=== PATIENT | female | born 1965 | race Caucasian/White ===

== ENCOUNTER → 2018-02-21 07:00 | Outpatient (CLI) | payer BC, SELFPAY ==
--- NOTE | 2018-02-21 07:00 | BI_ITS ---
MAMMOGRAPHY - BILATERAL SCREENING REASON FOR EXAM: Female, 52 years old. Routine annual screening examination. PERTINENT HISTORY: Non-contributory. TECHNIQUE: Digital bilateral breast kiesha (3D mammographic acquisition) in the CC and MLO projections. 2-D mediolateral oblique (MLO) and craniocaudad (CC) views of both breasts were obtained. CAD: Full Field Digital Mammography with Computer Added Detection was performed. COMPARISON: Comparison is made with prior study dated February 20, 2017 and January 24, 2016. FINDINGS: Breast Composition: There are scattered areas of fibroglandular density. There are no dominant masses or suspicious calcifications. No other significant abnormalities are identified. There has been no significant change since the prior study. BI/SCREENING MAMM (CAD), BILAT IMPRESSION: Stable bilateral screening mammogram. Yearly follow-up mammogram recommended. (A) ASSESSMENT CATEGORY: BIRADS Category 1: Negative. A letter regarding these results will be sent to the patient by the facility within 30 days. Approximately 10% of breast cancers are not detected by mammography. A normal mammogram should not delay biopsy of a clinically suspicious abnormality. [id number] Electronically Signed: Jorge Mac MD at 8:45 EST Tel [phone], Service support ,
--- OUTSIDE RECORDS SUMMARY | 2018-04-18 07:11 | XMS RPT_ITS | Clinical Summary ---
:1965 Author Organization [facility], [facility] Address [address] [place] [address] Phone Care Team Providers Name Role Phone Niki Alvares MD Unavailable Conditions or Problems Problem Name Problem Onset Status Entry Provider Comment Standard Annotate Code Date Date Description Hx of ASCUS 131798101 Active Niki Head History of Pap (SNOMED 03/30 03/[address]) cervical Papanicolaou smear Screening for 219874962 Active Niki Head Procedure HPV (SNOMED Marcleti carried out CT) on subject Screening for 759774972 Active Niki Head Screening for cervical (SNOMED Marcanthony malignant cancer CT) neoplasm of cervix Screening 00066841 Active Niki Head Screening mammogram for (SNOMED Marcanthony mammography breast cancer CT) Screening for 365650276 Active Niki Head Screening for colon cancer (SNOMED Marcanthony malignant CT) neoplasm of colon Climacteric 416501972 Active Niki Head Normal state, female (SNOMED Marcanthony menopause CT) MD Encounter for 56330768 Active Niki Head Gynecologic gynecological (SNOMED Marcanthony examination examination CT) (general) (routine) with abnormal findings Contact 03014298 Active Yg A Khan Contact dermatitis (SNOMED 09/27 09/27 ORACLE ETL DEVELOPER-C dermatitis CT) Insect bite 065365111 Active Yg A Khan Insect bite - (SNOMED 09/27 09/27 ORACLE ETL DEVELOPER-C wound CT) Spider bite 834368885 Active Maru Little Spider bite (SNOMED 09/27 09/27 Marcio TESTING ANALYST wound CT) Medications Medication Instructions Start Stop Generic Name NDC Provider Date Date VENLAFAXINE HCL One tablet by VENLAFAXINE HCL 87225724472 Niki Head 37.5 MG TABS mouth daily Giorgio HAMMER KEFLEX 500 MG One tablet by CEPHALEXIN 63229773751 Yg A Khan CAPS mouth twice /10/04 ORACLE ETL DEVELOPER-C daily HYDROCORTISONE apply HYDROCORTISONE 07861509150 Yg A Khan 2.5 % CREA sparingly to ORACLE ETL DEVELOPER-C affected extremity twice daily for 7 days HYDROCORTISONE apply HYDROCORTISONE 20908982519 Niki E 2.5 % CREA sparingly to Giorgio affected MD extremity twice daily for 7 days Medications Administered No information available. Allergies, Adverse Reactions, Alerts Observed no known allergies at Results Date Name Value Unit Range Flag Description Office Visit: est annual MEDS REVIEW Done Documentation of current medications (procedure) MAMMOGRAM Normal Bilateral Breast Mammogram screening PAP SMEAR Normal General categories [Interpretation] of Cervical or vaginal smear or scraping by Cyto stain ORALTOBACUSE Never Tobacco smoking status NHIS SMOK STATUS Never smoker Tobacco use [facility] FALLRSKATARANES No Fall risk assessment Lab Report: PAP I-G HPV Hi Risk ZZ-GE-unk Negative Negative GE use only - for LinkLogic import when terms are not otherwise specified Plan of Care Type Date Detail Referral Surgery Referral Andrew Tsaibody, [address] [facility], [address], [place], [address] Pending order Mammogram, Screening, both breasts Patient education INSECT%20BITE%20OR%20STING Procedures Code Procedure Name Date Entry Date [id number] Surgery Referral CPT-42482 Mammogram, Screening, both breasts Vital Signs Date Name Value Unit Description BMI (Body Mass Index) 25.72 kg/m2 Body Mass Index [Ratio] Body Temperature 97.5 [degF] temperature E&M Body Temperature 36.39 Etta temperature in centigrade E&M BP Diastolic 69 mm[Hg] blood pressure, diastolic - 8462-4 BP Systolic 124 mm[Hg] blood pressure, systolic - 8480-6 Heart Rate 58 /min pulse rate E&M - 8867-4 Height 66.5 [in_us] height E&M - 8302-2 Height 168.91 cm height in centimeters E&M Respiratory Rate 16 /min respiratory rate E&M - 9279-1 Weight Measured 161.8 [lb_av] weight E&M - 3141-9 Weight Measured 73.39 kg weight in kilograms E&M
--- OUTSIDE RECORDS SUMMARY | 2018-04-18 07:11 | XMS RPT_ITS | Clinical Summary ---
:1965 Author Organization [employer] [facility] Address [address] [place] [address] Phone Care Team Providers Name Role Phone NEVAEH Archuleta RN, Jaqueline Jung Unavailable Unavailable Conditions or Problems Problem Name Problem Onset Status Entry Provider Comment Standard Annotate Code Date Date Description Hx of ASCUS 178435695 Active Niki Head History of Pap (SNOMED 03/30 03/[address]) cervical Papanicolaou smear Screening for 624135414 Active Niki Head Procedure HPV (SNOMED Marcanthony carried out CT) on subject Screening for 207298753 Active Niki Adilene Screening for cervical (SNOMED Marcanthony malignant cancer CT) neoplasm of cervix Screening 11864997 Active Niki Adilene Screening mammogram for (SNOMED Marcanthony mammography breast cancer CT) Screening for 637655213 Active Niki Adilene Screening for colon cancer (SNOMED Marcanthony malignant CT) neoplasm of colon Climacteric 366905001 Active Niki Head Normal state, female (SNOMED Marcanthony menopause CT) MD Encounter for 97948429 Active Niki Head Gynecologic gynecological (SNOMED Marcanthony examination examination CT) (general) (routine) with abnormal findings Contact 56948635 Active Yg A Khan Contact dermatitis (SNOMED 09/27 09/27 GAMING DIRECTOR-C dermatitis CT) Insect bite 267057167 Active Yg A Khan Insect bite - (SNOMED 09/27 09/27 GAMING DIRECTOR-C wound CT) Spider bite 230471072 Active Maru Little Spider bite (SNOMED 09/27 09/[address]) Medications Medication Instructions Start Stop Generic Name NDC Provider Date Date VENLAFAXINE HCL One tablet by VENLAFAXINE HCL [id number] Niki Head 37.5 MG TABS mouth daily Giorgio HAMMER KEFLEX 500 MG One tablet by CEPHALEXIN 86115730254 Yg A Khan CAPS mouth twice /10/04 GAMING DIRECTOR-C daily HYDROCORTISONE apply HYDROCORTISONE 89154340756 Yg A Khan 2.5 % CREA sparingly to GAMING DIRECTOR-C affected extremity twice daily for 7 days HYDROCORTISONE apply HYDROCORTISONE 28628680585 Niki E 2.5 % CREA sparingly to [...] NHIS SMOK STATUS Never smoker Tobacco use [facility] FALLRSKASS[facility] No Fall risk assessment Lab Report: PAP I-G HPV Hi Risk ZZ-GE-unk Negative Negative GE use only - for LinkLogic import when terms are not otherwise specified Plan of Care Type Date Detail Referral Surgery Referral Andrew Armand, [address] [facility], [address], [place], [address] Pending order Mammogram, Screening, both breasts Patient education INSECT%20BITE%20OR%20STING Procedures Code Procedure Name Date Entry Date [id number] Surgery Referral CPT-18228 Mammogram, Screening, both breasts Vital Signs Date [...]
--- OUTSIDE RECORDS SUMMARY | 2018-04-18 07:11 | XMS RPT_ITS | Clinical Summary ---
:1965 Author Organization [facility] Address [address] [place] [address] Phone Care Team Providers Name Role Phone Marcio PORTER, Maru Little Unavailable Unavailable Conditions or Problems Problem Name Problem Onset Status Entry Provider Comment Standard Annotate Code Date Date Description Contact 79380372 Active Yg A Contact dermatitis (SNOMED CT) / Khan dermatitis WORK COUNSELOR-C Insect bite 494057804 Active Yg A Insect bite - (SNOMED CT) / Khan wound WORK COUNSELOR-C Spider bite 970017965 Active Maru Little Spider bite (SNOMED CT) / Marcio wound QUALITY CONTROL EXPERT Medications Medication Instructions Start Stop Generic Name NDC Provider Date Date HYDROCORTISONE apply sparingly / HYDROCORTISONE 14581627584 Yg A 2.5 % CREA to affected 05 Khan WORK COUNSELOR-C extremity twice daily for 7 days KEFLEX 500 MG One tablet by CEPHALEXIN 79889143991 Yg A CAPS mouth twice Khan WORK COUNSELOR-C daily Medications Administered No information available. Allergies, Adverse Reactions, Alerts Observed no known allergies at Results Date Name Value Unit Range Flag Description Office Visit: UC: spider bite/poison oak? MEDS REVIEW Done Documentation of current medications (procedure) FALLRSKASSES No Fall risk assessment SMOK STATUS Never smoker Tobacco use [facility] Plan of Care Type Date Detail Patient education INSECT%20BITE%20OR%20STING Procedures No information available. Vital Signs Date Name Value Unit Description BMI (Body Mass Index) 25.72 kg/m2 Body Mass Index [Ratio] Body Temperature 98.1 [degF] temperature E&M BP Diastolic 62 mm[Hg] blood pressure, diastolic - 8462-4 BP Systolic 110 mm[Hg] blood pressure, systolic - 8480-6 Heart Rate 55 /min pulse rate E&M - 8867-4 Height 66.5 [in_us] height E&M - 8302-2 Respiratory Rate 14 /min respiratory rate E&M - 9279-1 Weight Measured 161.8 [lb_av] weight E&M - 3141-9
--- OUTSIDE RECORDS SUMMARY | 2018-04-18 07:11 | XMS RPT_ITS | Clinical Summary ---
:1965 Author Organization [facility] Address [address] [place] [address] Phone Care Team Providers Name Role Phone Marcio PORTER, Maru Little Unavailable Unavailable Conditions or Problems Problem Name Problem Onset Status Entry Provider Comment Standard Annotate Code Date Date Description Contact [id number] Active Yg A Contact dermatitis (SNOMED CT) / Khan dermatitis EDGE PLUGGER-C Insect bite 302985205 Active Yg A Insect bite - (SNOMED CT) / Khan wound EDGE PLUGGER-C Spider bite 356808671 Active Maru Little Spider bite (SNOMED CT) / Marcio wound CLINICAL AIDE Medications Medication Instructions Start Stop Generic Name NDC Provider Date Date HYDROCORTISONE apply sparingly HYDROCORTISONE 74919939635 Yg A 2.5 % CREA to affected 05 Khan EDGE PLUGGER-C extremity twice daily for 7 days KEFLEX 500 MG One tablet by / CEPHALEXIN 69056778043 Yg A CAPS mouth twice Khan EDGE PLUGGER-C daily Medications Administered No information available. Allergies, Adverse Reactions, Alerts Observed no known allergies at Results Date Name Value Unit Range Flag Description Office Visit: UC: spider bite/poison oak? MEDS REVIEW Done Documentation of current medications (procedure) FALLRSKASSES No Fall risk assessment SMOK STATUS Never smoker Tobacco use [facility] Plan of Care Type Date Detail Appointment 12:00 PM Yg A Khan EDGE PLUGGER-C, [address], [address], [place], [address], Patient education INSECT%20BITE%20OR%20STING Procedures No information available. [...]
--- OUTSIDE RECORDS SUMMARY | 2018-04-18 07:11 | XMS RPT_ITS | Clinical Summary ---
:1965 Author Organization [facility], [facility] Address [address] [place] [address] Phone Care Team Providers Name Role Phone Niki Alvares MD Unavailable Conditions or Problems Problem Name Problem Onset Status Entry Provider Comment Standard Annotate Code Date Date Description Screening for 968192776 Active Niki Head Procedure HPV (SNOMED Marcanthony carried out CT) on subject Screening for 267005789 Active Niki E Screening cervical cancer (SNOMED Marcanthony for CT) malignant neoplasm of cervix Screening 45220104 Active Niki E Screening mammogram for (SNOMED Marcanthony mammography breast cancer CT) Screening for 025937019 Active Niki E Screening colon cancer (SNOMED Marcanthony for CT) malignant neoplasm of colon Climacteric 825792289 Active Niki Head Normal state, female (SNOMED Marcanthony menopause CT) MD Encounter for 87143901 Active Niki Adilene Gynecologic gynecological (SNOMED Marcanthony examination examination CT) (general) (routine) with abnormal findings Contact 03535469 Active Yg A Khan Contact dermatitis (SNOMED 09/27 09/27 GUTTER INSTALLER-C dermatitis CT) Insect bite 284053171 Active Yg A Khan Insect bite (SNOMED 09/27 09/27 GUTTER INSTALLER-C - wound CT) Spider bite 544034669 Active Maru N Spider bite (SNOMED 09/27 09/27 Marcio TELEPHONE SEX WORKER wound CT) Medications Medication Instructions Start Stop Generic Name NDC Provider Date Date VENLAFAXINE HCL One tablet by VENLAFAXINE HCL 49827824982 Niki Head 37.5 MG TABS mouth daily Giorgio HAMMER KEFLEX 500 MG One tablet by CEPHALEXIN 29442131668 Yg A Khan CAPS mouth twice /10/04 GUTTER INSTALLER-C daily HYDROCORTISONE apply HYDROCORTISONE 29336447129 Yg A Khan 2.5 % CREA sparingly to GUTTER INSTALLER-C affected extremity twice daily for 7 days HYDROCORTISONE apply HYDROCORTISONE 30862041862 Niki E 2.5 % CREA sparingly to Giorgio car MD extremity twice daily for 7 days [...] NHIS SMOK STATUS Never smoker Tobacco use [facility] FALLRSKAR[facility] No Fall risk assessment Plan of Care Type Date Detail Referral Surgery Referral Andrew Armand, [address] [facility], [address], [place], [address] Pending order Mammogram, Screening, both breasts Patient education INSECT%20BITE%20OR%20STING Procedures No information available. [...]
--- OUTSIDE RECORDS SUMMARY | 2018-04-18 07:12 | XMS RPT_ITS ---
:1965 Author Organization OHIP Care Team Providers Name Role Phone DR. SILVER NAQVI DO Attending Unavailable IRON HE, DR. BRIAN Moore Primary Care Unavailable MARGARET MURRAY DO Attending Unavailable IRON HE, DR. BRIAN Moore Primary Care Unavailable Niki Alvares Attending Unavailable BRIAN PERDUE Referring Unavailable Niki Alvares Attending Unavailable BRIAN PERDUE Primary Care Unavailable PROBLEMS PROBLEMS DATE TYPE CONDITION / CODE ATTENDING STATUS SOURCE 02/21/2018 Unknown Z12.31 - Encounter Santiago Alvares for screening [facility] mammogram for Hospital malignant neoplasm Repository of breast / Z12.31(ICD-10) 01/28/2018 Unknown Z01.411 - Encounter Santiago Alvares for gynecological [facility] (general) (routine) Repository with abnormal findings / Z01.411(ICD-10) 01/28/2018 Unknown N95.1 - Menopausal Santiago [facility] / N95.1(ICD-10) Repository 12/24/2017 Admitting Encounter for DRISS MORENO DR. Active [facility] Diagnosis general adult [facility] medical examination Repository without abnormal findings / Z00.00(ICD-10) PROCEDURES PROCEDURES No Procedure Records FoundRESULTS RESULTS SCREENING MAMM (CAD), Observed: 02/21/2018 Status: F Source: CARLENE BILAT 7:03 AM [facility] REPOSITORY [facility] Imaging Services [address] [place] [address] SCREENING MAMM (CAD), BILAT MR#: [id number] Acct: [id number] Name: JOE HAYES Rep #: [id number] : 1965 F 52 From: Jorge Mac MD PCP: Brian Perdue MD Status: REG CLI Study: SCREENING MAMM (CAD), BILAT Date of Exam: 02/21/18 Exam# [id number] Ordering Dr: Niki Alvares MD MAMMOGRAPHY - BILATERAL SCREENING REASON FOR EXAM: Female, 52 years old. Routine annual screening examination. PERTINENT HISTORY: Non-contributory. TECHNIQUE: Digital bilateral breast kiesha (3D mammographic acquisition) in the CC and MLO projections. 2-D mediolateral oblique (MLO) and craniocaudad (CC) views of both breasts were obtained. CAD: Full Field Digital Mammography with Computer Added Detection was performed. COMPARISON: Comparison is made with prior study dated February 20, 2017 and January 24, 2016. FINDINGS: Breast Composition: There are scattered areas of fibroglandular density. There are no dominant masses or suspicious calcifications. No other significant abnormalities are identified. There has been no significant change since the prior study. BI/SCREENING MAMM (CAD), BILAT IMPRESSION: Stable bilateral screening mammogram. Yearly follow-up mammogram recommended. (A) ASSESSMENT CATEGORY: BIRADS Category 1: Negative. A letter regarding these results will be sent to the patient by the facility within 30 days. Approximately 10% of breast cancers are not detected by mammography. A normal mammogram should not delay biopsy of a clinically suspicious abnormality. 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 Chief Complaint: est annual Medicaid Specialist Required: No Is patient in pain?: No Allergies No Known Allergies Allergy (Unverified 01/28/18 09:35) Medications venlafaxine ER 37.5 mg capsule,extended release 24 hr 37.5 mg PO DAILY 01/28/18 [History Confirmed 01/28/18] Is last menstrual period known: No Post menopausal: No Patient : No : No PFSH Medical History History of anxiety (Acute) History of depression (Acute) History of ectopic (Acute) Surgical History History of left oophorectomy (Acute) uterine ablation (Acute) Family History Grandmother Cancer lung Grandfather Colon cancer Social History Smoking Status: Never smoker alcohol intake: never substance use type: does not use caffeine: Yes what type of physical activity do you participate in: walking seatbelt use: always do you feel safe at home: Yes additional social history: Smita- [employer] Pregancy History 5 Elective abortions Hx Para 1 Spontaneous abortions Past Pregnancies Del. DatName [place]/WeeksOutcome Route [facility] LgAnesthesDel LocaProviderFOB e ht en ia tn Unknown [address] Female 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 dtr just got engaged. Last PAP: 2016 ascus hpv neg History of abnormal PAP: ascus Last mammogram: 02/21 History of abnormal mammogram: yes Colon cancer screening: needs to schedule Other preventative health care screenings: pcp- dr perdue ROS Const Constitutional: Reports as per HPI; denies poor appetite, fatigue, increased appetite, weight gain or weight loss Cardio Card: Denies chest pain Resp Resp: Denies dyspnea or cough GI GI: Reports as per HPI; denies bloating, abdominal pain, constipation, vomiting or nausea : Reports as per HPI and other; denies blood in urine, vaginal odor, vaginal itching, vaginal dryness, vaginal discharge, urinary urgency, urinary incontinence, urinary frequency, pelvic pain, painful urination, difficulty urinating, prolapse symptoms or nipple discharge Skin Skin/Breast: Denies breast pain, breast skin changes, nipple discharge, breast lump or changing lesions Exam Const General: cooperative, healthy appearing, comfortable, no acute distress, well developed, well groomed [facility] Head: normal to inspection, normocephalic Ears: hearing grossly normal bilaterally, external ears normal Nose: external nose normal Face and sinus: normal facial exam Neck Neck: normal visual inspection, full ROM, no lymphadenopathy Thyroid: thyroid normal Chest Chest palpation AND inspection: normal inspection of the chest Breast inspection: normal inspection of the breasts, normal inspection of the axillae Breast palpation: normal palpation of the breasts, normal palpation of the axillae, no axillary lymphadenopathy Resp Effort AND Inspection: normal respiratory effort GI Inspection: normal to inspection, non-distended Palpation: no guarding, soft, no hepatosplenomegaly General: bladder normal to palpation External Female Exam: normal external appearance, no lesions, normal appearance of the urethra Urethra: normal appearance of the urethra, normal palpation Speculum Exam - Vagina: normal appearance of the vagina, normal vaginal discharge Speculum Exam - Cervix: normal appearance of the cervix, no cervical discharge, no lesions, nontender Bimanual Exam- Vagina AND Uterus: No cervical tenderness, normal bimanual exam, uterine size normal, bladder normal to palpation, uterine mobility normal, uterine consistency normal, uterus non-tender, no cervical motion tenderness Bimanual Exam- Adnexa, other: normal adnexae, no adnexal masses, adnexae non-tender Skin General: no rashes or lesions noted Neuro General: alert, moves all extremities, no focal motor deficits Extrem General: no pedal edema, normal to inspection Psych Appearance: grossly normal Mental Status: mental status grossly normal Affect: normal affect Speech and Movement: speech and movement normal Attitude: cooperative Assessment AND Plan Problems 1. Encounter for gynecological examination with abnormal finding Z01.411 2. Climacteric N95.1 effexor Plan Cervical cancer screening: pap hpv 2017 Breast cancer screening: mamm other health maintenance examination reviewed and orders placed if needed. Encouraged maintenance of a healthy weight and active lifestyle and handout given. Annual exam handout including recommendations for good health guidelines, Calcium/vitamin D recommendations, and basic screening information given. Problem list up to date, see problem list details for any additional plan information. Follow up in one year for annual health maintenance exam or sooner if needed. Medications New: Coding Level of Care Code Off vis,est,prev 40-64yrs Diagnoses Encounter for gynecological examination with abnormal finding Z01.411 Gynecological examination findings: abnormal findings PRESENT Climacteric N95.1 01/28/18 1019 <Electronically signed by Niki Alvares MD> Date Niki Alvares MD Cosigner Signature: Date (if applicable) CC: CBC Collected: 12/24/2017 Status: F Source: [facility] 8:00 AM [facility] REPOSITORY TYPE CODE TESTS RESULT OUT OF REFERENCE UNITS RANGE LAB WBC(LOINC) 4.60-10.80 10 3/mcL WBC 5.00 LAB RBCCT(LOINC 4.20-5.40 10 6/mcL ) RBC 4.80 LAB HGB(LOINC) 12.0-16.0 G/dL Hgb 14.2 LAB HCT(LOINC) 37.0-47.0 % Hct 42.6 LAB MCV(LOINC) 80.0-94.0 fL MCV 88.8 LAB MCH(LOINC) 27.0-31.2 pg MCH 29.6 LAB MCHC(LOINC) 33.0-37.0 G/dL MCHC 33.4 LAB RDW(LOINC) 11.5-14.5 % RDW 14.5 LAB PLT(LOINC) 130-400 10 3/mcL Platelet 219 LAB MPV(LOINC) 7.4-10.4 fL MPV 10.1 Performed By: #### GFR, CMP, LIPID #### [place] [address] #### ANEU, ADIFF, CBC #### [address] [address] .AUTO DIFF Collected: 12/24/2017 Status: F Source: [facility] 8:00 AM [facility] REPOSITORY TYPE CODE TESTS RESULT OUT OF REFERENCE UNITS RANGE LAB CAM(LOINC) 37.0-80.0 % Neutrophil % 47.0 LAB LYM(LOINC) 10.0-50.0 % Lymphocyte % 41.4 LAB MON(LOINC) 1.7-13.0 % Monocyte % 5.8 LAB EO(LOINC) 0.0-7.0 % Eosinophil % 4.8 LAB BAS(LOINC) 0.0-2.5 % Basophil % 1.0 LAB ABLYM(LOIN 0.77-3.85 10 3/mcL C) Lymphocyte, 2.10 Absolute LAB SHANNAN(LOINC 0.15-1.00 10 3/mcL ) Monocyte, 0.30 Absolute LAB AEOS(LOINC 0.00-0.40 10 3/mcL ) Eosinophil, 0.20 Absolute LAB ABAS(LOINC 0.00-0.19 10 3/mcL ) Basophil, 0.00 Absolute Performed By: #### GFR, CMP, LIPID #### [address] [address] #### ANEU, ADIFF, CBC #### [address] [address] .NEUABS Collected: 12/24/2017 Status: F Source: [facility] 8:00 AM [facility] REPOSITORY TYPE CODE TESTS RESULT OUT OF REFERENCE UNITS RANGE LAB ANEU(LOINC) 2.85-6.16 10 3/mcL Low Neutrophil, 2.30 Absolute Performed By: #### GFR, CMP, LIPID #### [place] [address] #### ANEU, ADIFF, CBC #### [place] [address] [place], [place] [address] LIPID Collected: 12/24/2017 Status: F Source: [facility] 8:00 [facility] REPOSITORY TYPE CODE TESTS RESULT OUT OF REFERENCE UNITS RANGE LAB CHOL(LOINC 0-200 mg/dL ) Cholesterol 185 Result Comment: Cholesterol Reference Interval: Less than 200 Desirable 200-239 Borderline high risk 240 and above High risk LAB TRIG(LOINC) 0-150 mg/dL Triglycerides 43 Result Comment: Triglyceride Reference Interval: Less than 150 Normal 150-199 Borderline high risk 200-499 High risk 500 or higher Very high risk LAB HD(LOINC) 40-60 mg/dL HDL High Cholesterol 75 LAB LDL(LOINC) 0-130 mg/dL LDL Cholesterol 101 Performed By: #### GFR, CMP, LIPID #### [place] [address] #### ANEU, ADIFF, CBC #### [address] [address] CMP Collected: 12/24/2017 Status: F Source: [facility] 8:00 [facility] REPOSITORY TYPE CODE TESTS RESULT OUT OF REFERENCE UNITS RANGE LAB GLU(LOINC) 70-105 mg/dL Glucose Level 88 LAB NA(LOINC) 136-145 mmol/L Sodium Level 140 LAB K(LOINC) 3.5-5.1 mmol/L Potassium Level 4.4 LAB CL(LOINC) 98-107 mmol/L Chloride 102 LAB CO2(LOINC) 22-29 mmol/L CO2 High 31 LAB EBAL(LOINC mEq/L ) Electrolyte Balance 7.0 LAB BUN(LOINC) 7-18 mg/dL BUN 15 LAB CRE(LOINC) 0.55-1.02 mg/dL Creatinine Lvl (s) 0.73 LAB BC(LOINC) 7-27 ratio BUN/Creatinine 21 Ratio LAB CA(LOINC) 8.4-10.2 mg/dL Calcium Lvl 9.2 LAB PROT(LOINC 6.4-8.2 G/dL ) Total Protein 7.0 LAB ALB(LOINC) 3.5-5.0 G/dL Albumin Level 4.1 LAB GLB(LOINC) G/dL Globulin 2.9 LAB AG(LOINC) 1.1-2.5 ratio A/G Ratio 1.4 LAB BILT(LOINC 0.2-1.0 mg/dL ) Bili Total 0.7 LAB AP(LOINC) 40-135 U/L Alk Phos 58 LAB AST(LOINC) 10-40 U/L AST/SGOT 27 LAB ALT(LOINC) 10-35 U/L ALT/SGPT High 61 Performed By: #### GFR, CMP, LIPID #### [place] [address] #### ANEU, ADIFF, CBC #### [address] [address] .GFR Collected: 12/24/2017 Status: F Source: [facility] 8:00 AM [facility] REPOSITORY TYPE CODE TESTS RESULT OUT OF REFERENCE UNITS RANGE LAB GFRAA(LOINC ml/min/1.73 ) sqm GFR 102 Swazi Result Comment: GFR Population mean for , Non- Americans Ages 20-29 = 116 mL/min/1.73 sq.m. Ages 30-39 = 107 mL/min/1.73 sq.m. Ages 40-49 = 99 mL/min/1.73 sq.m. Ages 50-59 = 93 mL/min/1.73 sq.m. Ages 60-69 = 85 mL/min/1.73 sq.m. Ages 70+ = 75 mL/min/1.73 sq.m. Chronic Kidney Disease: Less than 60 mL/min/1.73 square meters End Stage Renal Disease: Less than 15 mL/min/1.73 square meters LAB GFRNO(LOINC) ml/min/1.73sqm GFR Non- 84 Result Comment: GFR Population mean for , Non- Americans Ages 20-29 = 116 mL/min/1.73 sq.m. Ages 30-39 = 107 mL/min/1.73 sq.m. Ages 40-49 = 99 mL/min/1.73 sq.m. Ages 50-59 = 93 mL/min/1.73 sq.m. Ages 60-69 = 85 mL/min/1.73 sq.m. Ages 70+ = 75 mL/min/1.73 sq.m. Chronic Kidney Disease: Less than 60 mL/min/1.73 square meters End Stage Renal Disease: Less than 15 mL/min/1.73 square meters Performed By: #### GFR, CMP, LIPID #### [facility] [address] [place] [address] #### ANEU, ADIFF, CBC #### [address] [address] ALLERGIES ALLERGIES DATE TYPE / CODE NAME / CODE REACTION SEVERITY SOURCE 01/28/2018 Drug No Known Unknown [facility] Allergy/4160 Allergies/F00 Hospital [address](SNOMED 8039458(RXNOR Repository CT) M) ENCOUNTERS ENCOUNTERS ADMIT/DISCHARGE ACCOUNT NUMBER ADMITTING ENCOUNTER LOCATION SOURCE CLASS 02/21/2018 [id number] Ambulatory [facility] ding:OPBI Repository 02/19/2018/02/20/20 [id number] Emergency BBuilding:[address] Repository 01/28/2018/01/29/20 [id number] Ambulatory BMSBuilding: [address] Repository 12/24/2017/12/29/19 [id number] Ambulatory [address] ding:[facility] Repository PAYERS PAYERS ENCOUNTER GUARANTOR PAYER SUBSCRIBER SOURCE 02/21/2018 Smita Escalante Primary [address] Insurance:ANTHEMPolicy WALLERDOB: [facility] Number: [id number] [id number] Repository [place], [place] Date:9671-98-55[address] [address]Vyq: [phone], [place] [phone] () [id number]: 02/21/2018 Secondary NOT GIVENUNK Carlene Insurance:SELF PAY Community INSURANCEPolicy [facility] Number: Effective Repository Date:2017-10-16 02/19/2018 [facility] WALLERDOB: Insurance:ANTHEM BLUE WALLERDOB: [facility] [address] [place] INSCOPolicy [id number] Repository ORTHODOXY Number: [facility] [id number] [facility], , [place] [address]Mot: Date:2018-02-19 - [place] [address]Exe: [id number] (HP)Tel: [phone]) Name:BPO BOX (HP) (WP) [id number], [place] [phone] (WP) [id number]: 01/28/2018 Smita M [address] [facility] W[facility]DOB: [facility] Number: [id number] [facility] [id number] Repository [place], [place] Date:4228-97-01YB [address] [address]Djy: [phone], [place] [phone] (HP) [phone]: 01/28/2018 Secondary NOT GIVENUNK [place] Insurance:SELF PAY [facility] Number: Effective Repository Date:2018-01-28 12/24/2017 [facility]ANTHEM BLUE WALLERDOB: [facility] W [place] COMMERCIALPolicy [id number] Repository ORTHODOXY Number: [facility] [id number] [facility], , [place] [address]Ujl: Date:2017-12-24 - [place] [address]Nzc: [id number] (HP)Tel: [phone]) Name:BPO BOX (HP) (WP) [phone], [place] 000-0000 (WP) [phone]:
--- OUTSIDE RECORDS SUMMARY | 2018-04-18 07:12 | XMS RPT_ITS | Clinical Summary ---
:1965 Author Organization Formerly [facility], [facility] Address [address] [place] [address] Phone Care Team Providers Name Role Phone Niki Alvares MD Unavailable Conditions or Problems Problem Name Problem Onset Status Entry Provider Comment Standard Annotate Code Date Date Description Screening for 512002015 Active Niki Head Procedure HPV (SNOMED Marcanthony carried out CT) on subject Screening for 313763247 Active Niki E Screening cervical cancer (SNOMED Marcanthony for CT) malignant neoplasm of cervix Screening 29533323 Active Niki E Screening mammogram for (SNOMED Marcanthony mammography breast cancer CT) Screening for 572411364 Active Niki E Screening colon cancer (SNOMED Marcanthony for CT) malignant neoplasm of colon Climacteric 803636212 Active Niki Head Normal state, female (SNOMED Marcanthony menopause CT) MD Encounter for 44407150 Active Niki Adilene Gynecologic gynecological (SNOMED Marcanthony examination examination CT) (general) (routine) with abnormal findings Contact 83027913 Active Yg A Khan Contact dermatitis (SNOMED 09/27 09/27 LARD BLEACHER-C dermatitis CT) Insect bite 315338249 Active Yg A Khan Insect bite (SNOMED 09/27 09/27 LARD BLEACHER-C - wound CT) Spider bite 824100565 Active Maru N Spider bite (SNOMED 09/27 09/27 Marcio JOCKEY'S AGENT wound CT) Medications Medication Instructions Start Stop Generic Name NDC Provider Date Date VENLAFAXINE HCL One tablet by VENLAFAXINE HCL 18779830413 Niki Head 37.5 MG TABS mouth daily Giorgio HAMMER KEFLEX 500 MG One tablet by CEPHALEXIN 20231825959 Yg A Khan CAPS mouth twice /10/04 LARD BLEACHER-C daily HYDROCORTISONE apply HYDROCORTISONE 18704725045 Yg A Khan 2.5 % CREA sparingly to LARD BLEACHER-C affected extremity twice daily for 7 days HYDROCORTISONE apply HYDROCORTISONE 89036776803 Niki Head 2.5 % CREA sparingly to Giorgio car [...] NHIS SMOK STATUS Never smoker Tobacco use [facility] FALLRSKATARANES No Fall risk assessment Plan of Care Type Date Detail Appointment 01:00 PM Niki Alvares MD, [address] [facility], [address] Floor, [place], [address], Referral Surgery Referral Andrew Acuna, [address], [address], [place], [address] Pending order Mammogram, Screening, both breasts Patient [...]
== END ==
PROVIDERS: Family Provider Family Medicine; PCP Family Medicine; Visit Provider Obstetrics & Gynecology
DX: Z12.31 Encounter for screening mammogram for malignant neoplasm of breast (principal)
CPT/HCPCS: 77063; 77067

== ENCOUNTER → 2019-02-24 07:02 | Outpatient (CLI) | payer BC, SELFPAY ==
--- NOTE | 2019-02-24 07:08 | BI_ITS ---
MAMMOGRAPHY - BILATERAL SCREENING REASON FOR EXAM: Female, 53 years old. Routine annual screening examination. PERTINENT HISTORY: Non-contributory. TECHNIQUE: Digital bilateral breast elia (3D mammographic acquisition) in the CC and MLO projections. 2-D mediolateral oblique (MLO) and craniocaudad (CC) views of both breasts were obtained. CAD: Full Field Digital Mammography with Computer Added Detection was performed. COMPARISON: Comparison is made with prior study dated February 21, 2018 and February 20, 2017. FINDINGS: Breast Composition: There are scattered areas of fibroglandular density. There are no dominant masses or suspicious calcifications. No other significant abnormalities are identified. There has been no significant change since the prior study. BI/SCREEN MAMM (CAD) W/ELIA BILAT IMPRESSION: Stable bilateral screening mammogram. Yearly follow-up mammogram recommended. (A) ASSESSMENT CATEGORY: BIRADS Category 1: Negative. A letter regarding these results will be sent to the patient by the facility within 30 days. Approximately 10% of breast cancers are not detected by mammography. A normal mammogram should not delay biopsy of a clinically suspicious abnormality. [id number] Electronically Signed: Jorge Mac, at 8:53 EST , Service support ,
== END ==
PROVIDERS: Family Provider Family Medicine; PCP Family Medicine; Referring Provider Obstetrics & Gynecology; Visit Provider Obstetrics & Gynecology
DX: Z12.31 Encounter for screening mammogram for malignant neoplasm of breast (principal)
CPT/HCPCS: 77063; 77067

== ENCOUNTER → 2019-02-27 17:13 | Outpatient (CLI) | payer BC, SELFPAY ==
[2019-02-27 11:09] VITALS: BMI 27.3
[2019-03-04 14:01] LABS: HPV APTIMA, High Risk Negative (Negative)
== END ==
PROVIDERS: Family Provider Family Medicine; PCP Family Medicine; Referring Provider Obstetrics & Gynecology; Visit Provider Obstetrics & Gynecology
DX: Z12.4 Encounter for screening for malignant neoplasm of cervix (principal)
CPT/HCPCS: 87624; 88175; G0145

== ENCOUNTER 2019-03-14 09:10 | Day surgery (SDC) | payer BC, SELFPAY ==
[2019-02-27 11:09] VITALS: BMI 27.3
[2019-03-14 09:39] VITALS: BP 135/67; PULSE 54; RESP 16; TEMP 36.8; O2SAT 100; BMI 25.3
[2019-03-14 09:40] LABS: Internal QC Validated? YES +Cl - CLEAR BKGD; Pregnancy, Urine Negative Negative
--- NOTE | 2019-03-14 09:53 | HP.PCM_ITS ---
History of Present Illness Date of Admission: 03/14/19 The patient is a 53 year old F here for screening colonoscopy. The patient reports that she has never had a colonoscopy in the past. She has no abdominal pain or blood in her stool. No weight loss. She has no family history of colon cancer in her immediate family, only a grandfather. Past Medical/Surgical History - Planned Operation Planned Operative Procedure/s: COLONOSCOPY Date of Operative Procedure: 03/14/19 Permit Signed: Yes S.O.S: No Is This Patient Having a Total Joint: No - Previous Hospitalizations/Surgeries HX Hospitalizations: No HX of Surgeries: L OOPHRECTOMY. ENDOMETRIAL ABLATION Any Problems With Anesthesia: No You/Your Family Experience Fever (Hyperthermia) With Anes: No Cholinesterase deficiency: No - Cardiovascular Hx Chest Pain within Last 2 months: No Hx of Irregular Heartbeat and/or Afib: No Hx Heart Attack: No Hx Congestive Heart Failure: No Hx Rheumatic Fever: No Hx Hypertension: No Hx Internal Defibrillator: No Hx Pacemaker: No Hx Cardiac Catheterization: No Hx Cardiac Surgery/Stents/Etc.: No Hx Stress Test: No HX Edema: No Hx Pain in Legs when Walking/Leg Cramps: No - Respiratory Chronic Cough: No HX of Shortness of Breath: No Hoarseness: No Hx Chronic Obstructive Pulmonary Disease (COPD): No Hx Asthma: No Hx Emphysema: No Hx Sleep Apnea: No Hx Oxygen Use at Home: No Hx Respiratory Tract Infection/Cold (presently): No Do You Snore Loudly (louder than talking or can be heard): Yes Do You Often Feel Tired/ Fatigued/ Sleepy Dring Daytime?: No Has Anyone Observed You Stop Breathing During Sleep?: No Result (for STOP score): Negative Hx Smoking: No Smoking Status: Never smoker - Gastrointestinal Hx Gastroesophageal Reflux: No Hx Gastrointestinal Disorders: No Hx Gastrointestinal Bleed: No Hx Ulcer: No Hx Hiatal Hernia: No Difficulty Chewing/Swallowing: No Recent Onset of Swallowing Problems: No Special diet followed at home: No Hx Unplanned Weight Loss of 20#: No HX Unplanned Weight Gain of 20#: No - Neurological Hx Seizures: No HX Syncope/Blackout Spells/Unconsciousness: No Hx CVA/Stroke: No Hx Transient Ischemic Attacks (TIA): No Hx Multiple Sclerosis: No Hx Parkinson's Disease: No Hx Head/Neck Injury: No Hx Headaches: Yes Hx Back Injury/Pain: No Recent Onset of Speech Difficulty: No Restless Legs: No Does patient have nerve stimulator: No - Blood Disorder Hx Leukemia: No Bleeding Tendencies: No Hx Deep Vein Thrombosis: No Hx High Cholesterol: No Blood Transmitted Disease: No Hx Hepatitis: No Hx Cirrhosis: No Hx Anemia: No Hx Blood Disorders: No - Reproduction : No Is Patient Lactating: No Hx Hysterectomy: No Hx Tubal Ligation: No Are You Post Menopause: No Pt Instructed Not To Have Any Sex From Now Until Surgery: No - Genitourinary Hx Renal Disease: No - Musculoskeletal Hx Arthritis: No Hx Rheumatoid Arthritis: No Hx Gout: No Recent Onset of an Orthopedic Problem: No - Endocrine Hx Diabetes: No Thyroid Disease: No Hx Steroid Therapy: No - Psycho/Social Hx Substance Use: No Hx Alcohol Use: No Hx Anxiety: No Hx Depression: No Mental Illness: No Hx Dementia: No - Miscellaneous Hx Cancer: No Recent Exposure to Contagious Disease: No Active MRSA: No Hx of C-Diff: No Any Loose Teeth: No Allergies No Known Allergies Allergy (Verified 03/11/19 14:03) - Discharge Is Pt Admitted From a Care Home, or a Intermediate: No Who Could Help: After D/C, Where Do you Plan to Go: Return Home - Physical Exam Vitals/I&O's: Vital Signs Temp Pulse Resp BP Pulse Ox 98.2 F 54 L 16 135/67 H 100 03/14/19 09:39 03/14/19 09:39 03/14/19 09:39 03/14/19 09:39 03/14/19 09:39 Oxygen Delivery Method Room Air Weight: 159 lb 6.307 oz Body Mass Index (BMI) 25.3 General: Alert, Oriented x3 Lungs: Normal air movement Cardiovascular: Regular rate, Regular Rhythm Abdomen: Soft, Non Tender, Non-Distended Laboratory Results 03/14/19 09:30: Urine Test Negative Assessment/Plan All Active Problems (Last Reviewed 02/27/19 @ 11:09 by Genny Chinchilla) Climacteric (Acute) Atypical squamous cell changes of undetermined significance (ASCUS) on cervical cytology with negative high risk human papilloma virus (HPV) test result (Acute) 53-year-old female here for screening colonoscopy. I explained endoscopy in detail to the patient. I explained the risks including but not limited to stroke or heart attack with anesthesia, perforation of the GI tract, bleeding, infection. I explained that any of these could necessitate further emergency surgery. The patient understands and all questions were answered sufficiently. The patient wishes to proceed with procedure. Elmer Jara MD Pager: [facility] [address] [place] [address] [address] [place] [address] Office: Surgery Risks - Colonoscopy Risks Include but are not Limited To: Risks include but are not limited to: Bleeding, perforation requiring further surgery, inability to complete colonoscopy requiring barium enema.
[2019-03-14] MEDS: Lactated Ringers 1,000 ML 75 ML IV (10:02)
[2019-03-14 10:22] VITALS: BP 135/67; BP 80/48; PULSE 75; RESP 16; TEMP 36.3; O2SAT 100
--- NOTE | 2019-03-14 10:23 | OP.COLON_ITS ---
Patient Name: Stacey Chau Procedure Date: 03/14/2019 10:02 AM Date of : 1965 Age: 53 Procedure: Colonoscopy Indications: Screening for colorectal malignant neoplasm Providers: Elmer Jara MD Referring MD: Mir Cohen Medicines: Monitored Anesthesia Care Patient Profile: This is a 53 year old female. Refer to note in patient chart for documentation of history and physical. Last Colonoscopy: none. The patient's first colonoscopy is today. Complications: No immediate complications. Procedure: Pre-Anesthesia Assessment: - Prior to the procedure, a History and Physical was performed, and patient medications and allergies were reviewed. The patient's tolerance of previous anesthesia was also reviewed. The risks and benefits of the procedure and the sedation options and risks were discussed with the patient. All questions were answered, and informed consent was obtained. Prior Anticoagulants: The patient has taken no previous anticoagulant or antiplatelet agents. After reviewing the risks and benefits, the patient was deemed in satisfactory condition to undergo the procedure. After I obtained informed consent, the scope was passed under direct vision. Throughout the procedure, the patient's blood pressure, pulse, and oxygen saturations were monitored continuously. The Colonoscope was introduced through the anus and advanced to the cecum, identified by appendiceal orifice and ileocecal valve. The colonoscopy was performed without difficulty. The patient tolerated the procedure well. The quality of the bowel preparation was good. Scope In: 10:07:05 AM Scope Withdrawal Time 0 hours 6 minutes 32 seconds Scope Out: 10:19:24 AM Total Procedure Duration Time 0 hours 12 minutes 19 seconds Findings: The entire examined colon appeared normal on direct and retroflexion views. Impression: - The entire examined colon is normal on direct and retroflexion views. - No specimens collected. Recommendation: - Discharge patient to home. - Resume previous diet. - Continue present medications. - Repeat colonoscopy in 10 years for screening purposes. Procedure Code(s): --- Professional --- 22072, Colonoscopy, flexible; diagnostic, including collection of specimen(s) by brushing or washing, when performed (separate procedure) Diagnosis Code(s): --- Professional --- Z12.11, Encounter for screening for malignant neoplasm of colon CPT copyright 2017 [employer]. All rights reserved. The codes documented in this report are preliminary and upon braille coder review may be revised to meet current compliance requirements. Elmer Jara MD 03/14/2019 10:22:48 AM This report has been signed electronically. Number of Addenda: 0 Note Initiated On: 03/14/2019 10:02 AM
[2019-03-14 10:25] VITALS: BP 135/67; BP 89/47; PULSE 63; RESP 16; O2SAT 100
[2019-03-14 10:30] VITALS: BP 101/72; BP 135/67; PULSE 62; RESP 16; O2SAT 100
[2019-03-14 10:35] VITALS: BP 107/70; BP 135/67; PULSE 62; RESP 16; TEMP 36.5; O2SAT 100
[2019-03-14 11:11] VITALS: BP 135/67
== END 2019-03-14 11:13 | disposition home or self-care (01) ==
LOC: EN 09:11 → AC 09:12
PROVIDERS: Anesthesiology; Family Provider Family Medicine; PCP Family Medicine; Referring Provider Family Medicine; Visit Provider Surgery
PROC: 0DJD8ZZ Inspection of Lower Intestinal Tract, Via Natural or Artificial Opening Endoscopic (ICD-10-PCS; CPT 45378; principal; 2019-03-14 10:10)
DX: Z12.11 Encounter for screening for malignant neoplasm of colon (principal)
CPT/HCPCS: 45378; 81025; J7120

== ENCOUNTER → 2020-02-26 07:55 | Outpatient (CLI) | payer BC, SELFPAY ==
--- NOTE | 2020-02-26 07:58 | BI_ITS ---
MAMMOGRAPHY - BILATERAL SCREENING REASON FOR EXAM: Female, 54 years old. Routine annual screening examination. PERTINENT HISTORY: Non-contributory. TECHNIQUE: Digital bilateral breast elia (3D mammographic acquisition) in the CC and MLO projections. 2-D mediolateral oblique (MLO) and craniocaudad (CC) views of both breasts were obtained. CAD: Full Field Digital Mammography with Computer Added Detection was performed. COMPARISON: Comparison is made with prior study dated 02/24/2019 and 02/21/2018. FINDINGS: Breast Composition: There are scattered areas of fibroglandular density. There are no dominant masses or suspicious calcifications. No other significant abnormalities are identified. There has been no significant change since the prior study. BI/SCREEN MAMM (CAD) W/ELIA BILAT IMPRESSION: Stable bilateral screening mammogram. Yearly follow-up mammogram recommended. (A) ASSESSMENT CATEGORY: BIRADS Category 1: Negative. A letter regarding these results will be sent to the patient by the facility within 30 days. Approximately 10% of breast cancers are not detected by mammography. A normal mammogram should not delay biopsy of a clinically suspicious abnormality. [id number] Electronically Signed: Jorge Mac, at 9:01 EST , Service support ,
== END ==
PROVIDERS: PCP Family Medicine; Referring Provider Obstetrics & Gynecology; Visit Provider Obstetrics & Gynecology
DX: Z12.31 Encounter for screening mammogram for malignant neoplasm of breast (principal)
CPT/HCPCS: 77063; 77067

== ENCOUNTER → 2020-03-01 09:35 | Outpatient (CLI) | payer BC, SELFPAY ==
[2020-03-01 08:58] VITALS: BMI 25.2
[2020-03-01 10:37] LABS: T4 Free Direct 0.93 ng/dL (0.76-1.46); Thyroid Stim Hormone (TSH) 1.67 uIU/mL (0.358-3.74)
[2020-03-03 09:02] LABS: HPV APTIMA, High Risk Negative (Negative)
== END ==
PROVIDERS: PCP Family Medicine; Referring Provider Obstetrics & Gynecology; Visit Provider Obstetrics & Gynecology
DX: E01.0 Iodine-deficiency related diffuse (endemic) goiter (principal); Z12.4 Encounter for screening for malignant neoplasm of cervix
CPT/HCPCS: 36415; 84439; 84443; 87624; 88175; G0145

== ENCOUNTER → 2020-03-08 14:56 | Outpatient (CLI) | payer BC, SELFPAY ==
[2020-03-01 08:58] VITALS: BMI 25.2
--- NOTE | 2020-03-08 14:59 | US_ITS ---
STUDY: THYROID ULTRASOUND REASON FOR EXAM: Female, 54 years old. thyromegaly TECHNIQUE: Ultrasound evaluation of the thyroid was performed with real-time and static tellez-scale imaging. COMPARISON: None. FINDINGS: RIGHT LOBE: The right lobe of the thyroid gland measures 4.7 x 1.5 x 1.2 cm. There is a homogeneous echotexture. There are no demonstrated solid, cystic or complex lesions. LEFT LOBE: The left lobe of the thyroid gland measures 4.4 x 1.5 x 1.2 cm. There is a homogeneous echotexture. There are no demonstrated solid, cystic or complex lesions. ISTHMUS: The isthmus measures 2.0 mm. The regional lymph nodes are normal. US/Thyroid IMPRESSION: Normal ultrasound examination of the thyroid. Electronically Signed: Genevieve Giles MD at 2:29 EST , Service support ,
== END ==
PROVIDERS: PCP Family Medicine; Referring Provider Obstetrics & Gynecology; Visit Provider Obstetrics & Gynecology
DX: E01.0 Iodine-deficiency related diffuse (endemic) goiter (principal)
CPT/HCPCS: 76536

== ENCOUNTER → 2020-11-25 07:05 | Outpatient (CLI) | payer BC, SELFPAY ==
--- NOTE | 2020-11-25 07:09 | BI_ITS ---
MAMMOGRAPHY - BILATERAL SCREENING 3-D TOMOSYNTHESIS REASON FOR EXAM: Female, 55 years old. screening after 02/25/2021 PERTINENT HISTORY: No significant family history. TECHNIQUE: 2-D mammograms and 3-D Tomosynthesis of the breast (s) were performed. CAD was performed. COMPARISON: 02/26/2020 FINDINGS: The breast composition is composed of scattered fibroglandular density. Scattered benign calcifications are seen. No dense spiculated masses or suspicious microcalcifications are identified. No architectural distortion is identified. There is no skin thickening or retraction. There has been no significant change since the prior study. BI/SCRN MAMM (CAD)W/ELIA BILAT IMPRESSION: No mammographic signs of malignancy. Routine yearly mammograms recommended. ASSESSMENT CATEGORY: BIRADS Category 1: Negative. A letter regarding these results will be sent to the patient by the facility within 30 days. FOLLOW UP RECOMMENDATION: Yearly follow up mammogram recommended. (A) Approximately 10% of breast cancers are not detected by mammography. A normal mammogram should not delay biopsy of a clinically suspicious abnormality. Electronically Signed: Delio Young MD at 8:40 EDT Tel , Service support ,
== END ==
PROVIDERS: PCP Family Medicine; Referring Provider Obstetrics & Gynecology; Visit Provider Obstetrics & Gynecology
DX: Z12.31 Encounter for screening mammogram for malignant neoplasm of breast (principal)
CPT/HCPCS: 77063; 77067

== ENCOUNTER → 2021-10-25 | Outpatient (CLI) | payer BC, SELFPAY ==
--- NOTE | 2021-10-25 07:31 | BI_ITS ---
MAMMOGRAPHY - BILATERAL SCREENING 3-D TOMOSYNTHESIS REASON FOR EXAM: Female, 56 years old. Routine screening PERTINENT HISTORY: No significant family history. TECHNIQUE: 2-D mammograms and 3-D Tomosynthesis of the breast (s) were performed. CAD was performed. COMPARISON: 02/26/2020 FINDINGS: The breast composition is composed of scattered fibroglandular density. Scattered benign calcifications are seen. No dense spiculated masses or suspicious microcalcifications are identified. No architectural distortion is identified. There is no skin thickening or retraction. There has been no significant change since the prior study. BI/SCRN MAMM (CAD)W/ELIA BILAT IMPRESSION: No mammographic signs of malignancy. Routine yearly mammograms recommended. ASSESSMENT CATEGORY: BIRADS Category 2: Benign. A letter regarding these results will be sent to the patient by the facility within 30 days. FOLLOW UP RECOMMENDATION: Yearly follow up mammogram recommended. (A) Approximately 10% of breast cancers are not detected by mammography. A normal mammogram should not delay biopsy of a clinically suspicious abnormality. Electronically Signed: Gopal Olson MD at 15:39 EDT ,
== END | disposition home or self-care (01) ==
LOC: OPBI 07:29
PROVIDERS: PCP Family Medicine; Visit Provider Obstetrics & Gynecology
DX: Z12.31 Encounter for screening mammogram for malignant neoplasm of breast (principal)
CPT/HCPCS: 77063; 77067

== ENCOUNTER → 2022-10-30 | Outpatient (CLI) | payer BC, SELFPAY ==
--- NOTE | 2022-10-30 07:13 | BI_ITS ---
MAMMOGRAPHY - BILATERAL SCREENING REASON FOR EXAM: Female, 57 years old. Routine annual screening examination. PERTINENT HISTORY: Non-contributory. TECHNIQUE: Digital bilateral breast elia (3D mammographic acquisition) in the CC and MLO projections. 2-D mediolateral oblique (MLO) and craniocaudad (CC) views of both breasts were obtained. CAD: Full Field Digital Mammography with Computer Added Detection was performed. COMPARISON: Comparison is made with prior study October 25, 2021 and November 25, 2020. FINDINGS: Breast Composition: There are scattered areas of fibroglandular density. There are no dominant masses or suspicious calcifications. No other significant abnormalities are identified. There has been no significant change since the prior study. BI/SCRN MAMM (CAD)W/ELIA BILAT IMPRESSION: Stable bilateral screening mammogram. Yearly follow-up mammogram recommended. (A) ASSESSMENT CATEGORY: BIRADS Category 1: Negative. A letter regarding these results will be sent to the patient by the facility within 30 days. Approximately 10% of breast cancers are not detected by mammography. A normal mammogram should not delay biopsy of a clinically suspicious abnormality. [id number] Electronically Signed: Jorge Mac MD at 9:00 EDT ,
== END | disposition home or self-care (01) ==
LOC: OPBI 07:07
PROVIDERS: PCP Student in an Organized Health Care Education/Training Program; Referring Provider Obstetrics & Gynecology; Visit Provider Obstetrics & Gynecology
DX: Z12.31 Encounter for screening mammogram for malignant neoplasm of breast (principal)
CPT/HCPCS: 77063; 77067

== ENCOUNTER → 2023-11-05 | Outpatient (CLI) | payer OTHER, SELFPAY ==
--- NOTE | 2023-11-05 07:13 | BI_ITS ---
MAMMOGRAPHY - BILATERAL SCREENING REASON FOR EXAM: Female, 58 years old. Routine annual screening examination. PERTINENT HISTORY: Non-contributory. TECHNIQUE: Digital bilateral breast elia (3D mammographic acquisition) in the CC and MLO projections. 2-D mediolateral oblique (MLO) and craniocaudad (CC) views of both breasts were obtained. CAD: Full Field Digital Mammography with Computer Added Detection was performed. COMPARISON: Comparison is made with prior study dated October 30, 2022 and October 25, 2021. FINDINGS: Breast Composition: There are scattered areas of fibroglandular density. There are no dominant masses or suspicious calcifications. No other significant abnormalities are identified. There has been no significant change since the prior study. BI/SCRN MAMM (CAD)W/ELIA BILAT IMPRESSION: Stable bilateral screening mammogram. Yearly follow-up mammogram recommended. (A) ASSESSMENT CATEGORY: BIRADS Category 1: Negative. A letter regarding these results will be sent to the patient by the facility within 30 days. Approximately 10% of breast cancers are not detected by mammography. A normal mammogram should not delay biopsy of a clinically suspicious abnormality. [id number] Electronically Signed: Jorge Mac MD at 8:15 EDT ,
== END | disposition home or self-care (01) ==
LOC: OPBI 07:13
PROVIDERS: PCP Student in an Organized Health Care Education/Training Program; Referring Provider Obstetrics & Gynecology; Visit Provider Obstetrics & Gynecology
DX: Z12.31 Encounter for screening mammogram for malignant neoplasm of breast (principal)
CPT/HCPCS: 77063; 77067

== ENCOUNTER → 2024-11-05 | Outpatient (CLI) | payer OTHER, SELFPAY ==
--- NOTE | 2024-11-05 07:15 | BI_ITS ---
EXAM: SCRN MAMM (CAD)W/ELIA BILAT DATE: 11/05/2024 CLINICAL HISTORY: F, Age 59 y/o , SCREEN FOR BREAST CANCER No family history. TECHNIQUE: SCRN MAMM (CAD)W/ELIA BILAT COMPARISON: Prior exam(s) dated November 05, 2023.. FINDINGS: TISSUE DENSITY: There are scattered areas of fibroglandular density. Bilateral Breast Mammographic Findings: No significant masses, calcifications or other abnormalities are identified. No suspicious masses, areas of developing architectural distortion, or suspicious calcifications. There has been no significant interval change. BI/SCRN MAMM (CAD)W/ELIA BILAT IMPRESSION: Stable examination. OVERALL FINAL ASSESSMENT BI-RADS 1: NEGATIVE. RECOMMENDATION: Routine annual follow-up in 1 Year A letter with findings and recommendations will be mailed to the patient. Reading Location: [id number]
--- OUTSIDE RECORDS SUMMARY | 2024-11-05 07:20 | XMS RPT_ITS | CCD ---
Author Organization [facility] Care Team Providers Care Cabin Worker Name Role Phone Maru Buckley LPN Unavailable Unavailab jamie Archuleta RN RN, Jaqueline Jung Unavailable Unavailliban Alvares MD, Niki Head Unavailable [phone] Maru Buckley LPN Unavailable Unavailab Stewart HAMMER, BRIAN Moore Primary Care Physician [phone] HAMMAD LEVINE DO Primary Care Physician [phone] GAVIN VALLADARES DO Primary Care Physician GAVIN VALLADARES DO Primary Care Unavailable HAMMAD LEVINE DO Attending Unavailable GAVIN VALLADARES DO Attending Unavailable GAVIN VALLADARES DO Primary Care Unavailable Hammad Levine Primary Care Unavailable Niki Alvares Attending Unavailable Hammad Levine Referring Unavailable Niki Alvares Referring Unavailable Niki Alvares Attending Unavailable Hammad Levine Primary Care Unavailable GAVIN VALLADARES DO Attending Unavailable GAVIN VALLADARES DO Primary Care Unavailable GAVIN VALLADARES DO Attending Unavailable GAVIN VALLADARES DO Primary Care Unavailable GAVIN VALLADARES DO Primary Care Unavailable GAVIN VALLADARES DO Attending Unavailable Allergies Allergy Classification Reported Allergen(s) Allergy Type Date of Onset Reaction(s) Facility (8 sources) nickel; Translations: [nickel] Drug Allergy 12-10-2023 [facility] Medications Current Medications Medication Drug Class(es) Dates Sig (Normalized) Sig (Original) cholecalciferol 0.05 mg oral capsule (1 source) Vitamin D Start: 12-05-2021 take 50 ug by mouth once daily Cholecalciferol (Vitamin D3) Active 50 MCG PO DAILY December 05, 2021 12:00am Multivitamin preparation (7 sources) Start: 12-25-2018 take 1 tablet by mouth once daily Multivitamin Dose = 1 tab(s), Oral, Daily, 0 Refill(s) Start Date: 12/25/18 Status: Ordered Multivitamin,Tx-Iron- Minerals (Complete Multivitamin) tablet (2 sources) Start: 02-27-2019 take 1 tablet by mouth once daily Multivitamin,Tx-Iron -Minerals (Complete Multivitamin) tablet Active 1 TABLET PO DAILY February 27, 2019 1:00am ondansetron 4 mg oral tablet, disintegrating (2 sources) Start: 01-31-2021 End: 03-02-2021 ondansetron 4 mg oral tablet, disintegrating Dose : 4 mg = 1 tab(s), Oral, q6h, PRN Nausea/Vomiting, # 20 tab(s), 0 Refill(s), 03/02/21 0:00:00 EST, Pharmacy: [facility]/pharmacy #[id number], 170, cm, 01/31/21 10:56:00 EST, Height, kg, 01/31/21 10:56:00 EST, Dosing Weight Start Date: 01/31/21 Stop Date: 03/02/21 Status: Ordered Probiotic (3 sources) Start: 12-14-2021 Probiotic 0 Refill(s) Start Date: 12/14/21 Status: Ordered turmeric extract 500 mg oral capsule (3 sources) Start: 04-26-2022 turmeric 500 mg oral capsule 0 Refill(s) Start Date: 04/26/22 Status: Ordered Vitamin D (6 sources) Start: 01-10-2021 vitamin D vitamin D, 0 Refill(s), 72.6 Start Date: 01/10/21 Status: Ordered Zinc (4 sources) Start: 01-10-2021 take 1 mg by mouth once daily Zinc mg =, Oral, qDay, 0 Refill(s) Start Date: 01/10/21 Status: Ordered zinc gluconate 100 mg oral tablet (1 source) Start: 12-05-2021 take 100 mg by mouth once daily Zinc Gluconate Active 100 MG PO DAILY December 05, 2021 12:00am Completed/Discontinued Medications Medication Drug Class(es) Dates Sig (Normalized) Sig (Original) cephalexin 500 mg oral capsule (6 sources) Cephalosporin Antibacterial Start: 09-27-2016 End: 10-04-2016 take 1 tablet by mouth twice daily KEFLEX 500 MG CAPS One tablet by mouth twice daily CEPHALEXIN [id number] Yg Khan MEDICAL ONCOLOGIST-C Start: 09-27-2016 End: 10-04-2016 take 1 tablet by mouth twice daily KEFLEX 500 MG CAPS One tablet by mouth twice daily CEPHALEXIN [id number] Yg Khan MEDICAL ONCOLOGIST-C hydrocortisone 25 mg/ml topical cream (10 sources) Corticosteroid Start: 09-27-2016 End: 01-23-2017 HYDROCORTISONE 2.5 % CREA apply sparingly to affected extremity twice daily for 7 days HYDROCORTISONE [id number] Niki Alvares MD 24 hr venlafaxine 75 mg extended release oral capsule (20 sources) Serotonin and Norepinephrine Reuptake Inhibitor Start: 03-01-2020 End: 03-01-2020 take 75 mg by mouth once daily Venlafaxine Discontinued 75 MG PO DAILY March 01, 2020 10:15am March 01, 2020 11:21am Start: 03-01-2020 End: 12-05-2021 take 1 capsule by mouth once daily Venlafaxine Discontinued 0 .ROUTE .COMPLEX 90 April 08, 2021 9:48am December 05, 2021 9:50am TAKE 1 CAPSULE BY MOUTH EVERY DAY Start: 12-25-2018 End: 03-01-2020 take 37.5 mg by mouth once daily Venlafaxine Discontinued 37.5 MG PO DAILY March 31, 2019 12:36pm March 01, 2020 10:22am Start: 01-28-2018 End: 02-27-2019 take 1 capsule by mouth once daily Venlafaxine (Effexor Xr) 37.5 mg capsule,extended release 24hr Discontinued 37.5 MG PO DAILY February 26, 2018 12:09pm February 27, 2019 12:09pm Start: 01-23-2017 take 1 tablet by frances th once daily VENLAFAXINE HCL 37.5 MG TABS One tablet by mouth daily VENLAFAXINE HCL [id number] Niki Alvares MD Problems Active Problems Problem Classification Problem Date Documented Da te Episodic/Chronic Cancer of cervix (2 sources) Atypical squamous cells of undetermined significance on cervical Papanicolaou smear; Translations: [Atypical squamous cells of undetermined significance on cytologic smear of cervix (ASC-US)] 12-05-2021 Episodic Menopausal disorders (2 sources) Menopausal syndrome; Translations: [Menopausal and female climacteric states] 12-05-2021 Chronic Osteoarthritis (3 sources) Osteoarthritis of hip 12-14-2021 Chronic Other bone disease and musculoskeletal deformities (3 sources) Cervical somatic dysfunction 12-14-2021 Episodic Other connective tissue disease (2 sources) Trochanteric bursitis 12-14-2021 Episodic Other connective tissue disease (1 source) Trochanteric bursitis of right hip; Translations: [Trochanteric bursitis, right hip] Episodic Other connective tissue disease (2 sources) Biceps tendinitis; Translations: [Bicipital tendinitis, unspecified shoulder] Episodic Other connective tissue disease (1 source) Soft tissue lesion of shoulder region; Translations: [Other shoulder lesions, unspecified shoulder] Episodic Other connective tissue disease (2 sources) Subscapularis tendinitis 08-27-2023 Episodic Other nutritional; endocrine; and metabolic disorders (3 sources) Overweight 12-14-2021 Episodic Other nutritional; endocrine; and metabolic disorders (3 sources) Overweight in adulthood with body mass index of 25 or more but less than 30 12-14-2021 Episodic Other screening for suspected conditions (not mental disorders or infectious disease) (1 source) Encounter for screening mammogram for malignant neoplasm of breast; Translations: [Encounter for screening mammogram for malignant neoplasm of breast] Onset: 11-30-2023 Episodic Residual codes; unclassified (1 source) Immunization due 12-14-2021 Episodic Residual codes; unclassified (2 sources) Screening due 12-14-2021 Episodic Screening and history of mental health and substance abuse codes (2 sources) Tobacco use and exposure - finding 08-27-2023 Chronic Spondylosis; intervertebral disc disorders; other back problems (1 source) Neck pain 12-14-2021 Episodic Thyroid disorders (2 sources) Goiter; 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 Chronic Unclassified (4 sources) Screening for malignant neoplasm of cervix ; Translations: [Encounter for screening for malignant neoplasm of cervix] Onset: 01-23-2017 01-23-2017 Unclassified (4 sources) Screening mammography ; Translations: [Encounter for screening mammogram for malignant neoplasm of breast] Onset: 01-23-2017 01-23-2017 Unclassified (4 sources) Screening for malignant neoplasm of colon ; Translations: [Encounter for screening for malignant neoplasm of colon] Onset: 01-23-2017 01-23-2017 Unclassified (4 sources) Gynecologic examination ; Translations: [Encounter for gynecological examination (general) (routine) with abnormal findings] Onset: 01-23-2017 01-23-2017 Unclassified (3 sources) Cancer cervix screening status 12-14-2021 Unclassified (10 sources) Patient encounter status 12-14-2021 Past or Other Problems Problem Classification Problem Date Documented Date Episodic/Chronic Allergic reactions (6 sources) Contact dermatitis; Translations: [Unspecified contact dermatitis, unspecified cause] Onset: 09-27-2016 09-27-2016 Episodic Immunizations and screening for infectious disease (4 sources) Encounter for screening for human papillomavirus (HPV); Translations: [Encounter for screening for human papillomavirus (HPV)] Onset: 01-23-2017 01-23-2017 Episodic Other female genital disorders (2 sources) History of abnormal cervical Papanicolaou smear ; Translations: [Personal history of other diseases of the female genital tract] Onset: 01-28-2017 01-28-2017 Episodic Poisoning by nonmedicinal substances (6 sources) Spider bite wound; Translations: [Injury, unspecified] Onset: 09-27-2016 09-27-2016 Episodic Superficial injury; contusion (6 sources) Insect bite - wound; Translations: [Other injury of unspecified body region] Onset: 09-27-2016 09-27-2016 Episodic Unclassified (4 sources) Asymptomatic menopausal state; Translations: [Asymptomatic menopausal state] Onset: 01-23-2017 01-23-2017 Episodic Results Test Name Value Interpretation Reference Range Facility .Auto Diffon 06-24-2024 Basophil, Absolute 0.1 10 3/mcL Normal 0.0-0.2 [facility] Comment on above: Performed By: #### G FR, PETER, LIP, ANEU, CBC, ADIFF, CMP #### [address] [address] Basophils/100 WBC (Bld) 1.2 % Normal 0.0-2.5 [facility] Comment on above: Performed By: #### G FR, PETER, LIP, ANEU, CBC, ADIFF, CMP #### [address] [address] Eosinophil, Absolute 0.3 10 3/mcL Normal 0.0-0.7 [facility] Comment on above: Performed By: #### G FR, PETER, LIP, ANEU, CBC, ADIFF, CMP #### [address] [address] Eosinophils/100 WBC (Bld) 5.2 % Normal 0.0-7.0 [facility] Comment on above: Performed By: #### G FR, PETER, LIP, ANEU, CBC, ADIFF, CMP #### [address] [address] Lymphocyte, Absolute 2.5 10 3/mcL Normal 0.9-4.3 [facility] Comment on above: Performed By: #### G FR, PETER, LIP, ANEU, CBC, ADIFF, CMP #### [address] [address] Lymphocytes/100 WBC (Bld) 45.4 % High 20.0-40.0 [facility] Comment on above: Performed By: #### G FR, PETER, LIP, ANEU, CBC, ADIFF, CMP #### [address] [address] Monocyte, Absolute 0.3 10 3/mcL Normal 0.1-1.4 [facility] Comment on above: Performed By: #### G FR, PETER, LIP, ANEU, CBC, ADIFF, CMP #### [address] [address] Monocytes/100 WBC (Bld) 5.2 % Normal 2.0-13.0 [facility] Comment on above: Performed By: #### G FR, PETER, LIP, ANEU, CBC, ADIFF, CMP #### [address] [address] Neutrophils/100 WBC (Bld) 43.0 % Low 50.0-75.0 [facility] Comment on above: Performed By: #### G FR, PETER, LIP, ANEU, CBC, ADIFF, CMP #### [address] [address] .GFRon 06-24-2024 Estimated Glomerular Filtration Rate 73 ml/min/1.73sqm Normal [facility] Comment on above: Result Comment: Stages of Chronic Kidney Disease (CKD) Stage Description eGFR(ml/min/1.73 sq.m.) CKD 1 Normal kidney function or >=90 normal kindney function with possible kidney damage (ex. Proteinuria) CKD 2 Kidney damage with mild loss 60-89 of kidney function CKD 3a Mild to moderate loss of kidney 45-59 function CKD 3b Moderate to severe loss of 30-44 of kindey function CKD 4 Severe loss of kidney function 15-29 CKD 5 Kidney failure <15 Note: (go live 2024) the eGFR calculation was updated to the 2020 CKD-EPI creatinine equation without a race factor to calculate the eGFR results. Performed By: #### A CAM, TSHR, CBC, LIPID, ADIFF #### [address] [address] .NEUABSon 06-24-2024 Neutrophil, Absolute 2.4 10 3/mcL Normal 2.3-8.1 [facility] Comment on above: Performed By: #### G FR, PETER, LIP, ANEU, CBC, ADIFF, CMP #### [place] [id number] AMYon 06-24-2024 Amylase [Catalytic activity/Vol] 51 U/L Normal 25-115 [facility] Comment on above: Performed By: #### G FR, PETER, LIP, ANEU, CBC, ADIFF, CMP #### [address] [address] CBCon 06-24-2024 Erythrocyte distribution width (RBC) [Ratio] 15.1 % Normal 11.5-15.5 [facility] Comment on above: Performed By: #### G FR, PETER, LIP, ANEU, CBC, ADIFF, CMP #### [address] [address] Hematocrit (Bld) [Volume fraction] 43.3 % Normal 34.0-46.0 [facility] Comment on above: Performed By: #### G FR, PETER, LIP, ANEU, CBC, ADIFF, CMP #### [address] [address] Hgb 14.6 G/dL Normal 12.0-16.0 [facility] Comment on above: Performed By: #### G FR, PETER, LIP, ANEU, CBC, ADIFF, CMP #### [address] [address] MCH (RBC) [Entitic mass] 29.1 pg Normal 27.0-33.0 [facility] Comment on above: Performed By: #### G FR, PETER, LIP, ANEU, CBC, ADIFF, CMP #### [address] [address] MCHC 33.6 G/dL Normal 32.0-36.0 [facility] Comment on above: Performed By: #### G FR, PETER, LIP, ANEU, CBC, ADIFF, CMP #### [address] [address] MCV (RBC) [Entitic vol] 86.5 fL Normal 80.0-99.0 [facility] Comment on above: Performed By: #### G FR, PETER, LIP, ANEU, CBC, ADIFF, CMP #### [address] [address] Platelet 214 10 3/mcL Normal 150-450 [facility] Comment on above: Performed By: #### G FR, PETER, LIP, ANEU, CBC, ADIFF, CMP #### [address] [address] Platelet mean volume (Bld) [Entitic vol] 9.2 fL Normal 6.6-10.5 [facility] Comment on above: Performed By: #### G FR, PETER, LIP, ANEU, CBC, ADIFF, CMP #### [address] [address] RBC 5.00 10 6/mcL Normal 4.10-5.30 [facility] Comment on above: Performed By: #### G FR, PETER, LIP, ANEU, CBC, ADIFF, CMP #### [address] [address] WBC 5.6 10 3/mcL Normal 4.5-10.8 [facility] Comment on above: Performed By: #### G FR, PETER, LIP, ANEU, CBC, ADIFF, CMP #### [address] [address] CMPon 06-24-2024 Albumin Level 3.7 G/dL Normal 3.5-5.0 [facility] Comment on above: Performed By: #### A CAM, TSHR, CBC, LIPID, ADIFF #### [place] [id number] Albumin/Globulin [Mass ratio] 1.2 {ratio} Normal 1.1-2.5 [facility] Comment on above: Performed By: #### A CAM, TSHR, CBC, LIPID, ADIFF #### [address] [address] ALP [Catalytic activity/Vol] 75 U/L Normal 40-135 [facility] Comment on above: Performed By: #### A CAM, TSHR, CBC, LIPID, ADIFF #### [address] [address] ALT [Catalytic activity/Vol] 40 U/L Normal 14-59 [facility] Comment on above: Performed By: #### A CAM, TSHR, CBC, LIPID, ADIFF #### [address] [address] AST [Catalytic activity/Vol] 24 U/L Normal 10-40 [facility] Comment on above: Performed By: #### A CAM, TSHR, CBC, LIPID, ADIFF #### [address] [address] Bili Total 0.6 mg/dL Normal 0.2-1.0 [facility] Comment on above: Result Comment: Use of this assay is not recommended for patients undergoing treatment with eltrombopag due to the potential for falsely elevated results. Performed By: #### A CAM, TSHR, CBC, LIPID, ADIFF #### [address] [address] BUN/Creatinine Ratio 13 ratio Normal 7-27 [facility] Comment on above: Performed By: #### A CAM, TSHR, CBC, LIPID, ADIFF #### [place] [id number] Calcium [Mass/Vol] 9.0 mg/dL Normal 8.4-10.2 [facility] Comment on above: Performed By: #### A CAM, TSHR, CBC, LIPID, ADIFF #### [place] [address] Chloride [Moles/Vol] 104 mmol/L Normal 98-107 [facility] Comment on above: Performed By: #### A CAM, TSHR, CBC, LIPID, ADIFF #### [place] [address] CO2 [Moles/Vol] 29 mmol/L Normal 22-29 [facility] Comment on above: Performed By: #### A CAM, TSHR, CBC, LIPID, ADIFF #### [place] [id number] Creatinine [Mass/Vol] 0.92 mg/dL Normal 0.55-1.02 [facility] Comment on above: Result Comment: Test ing performed on Siemens Dimension EXL analyzer using a modified kinetic Rm technique. Performed By: #### A CAM, TSHR, CBC, LIPID, ADIFF #### [place] [address] Electrolyte Balance 7.0 mEq/L Normal 4.0-15.0 [facility] Comment on above: Performed By: #### A CAM, TSHR, CBC, LIPID, ADIFF #### [address] [address] Globulin 3.0 G/dL Normal 1.5-3.8 [facility] Comment on above: Performed By: #### A CAM, TSHR, CBC, LIPID, ADIFF #### [address] [address] Glucose [Mass/Vol] 98 mg/dL Normal 70-105 [facility] Comment on above: Performed By: #### A CAM, TSHR, CBC, LIPID, ADIFF #### [address] [address] Potassium [Moles/Vol] 4.1 mmol/L Normal 3.5-5.1 [facility] Comment on above: Performed By: #### A CAM, TSHR, CBC, LIPID, ADIFF #### [address] [address] Sodium [Moles/Vol] 140 mmol/L Normal 136-145 [facility] Comment on above: Performed By: #### A CAM, TSHR, CBC, LIPID, ADIFF #### [address] [address] Total Protein 6.7 G/dL Normal 6.4-8.2 [facility] Comment on above: Performed By: #### A CAM, TSHR, CBC, LIPID, ADIFF #### [address] [address] Urea nitrogen [Mass/Vol] 12 mg/dL Normal 7-18 [facility] Comment on above: Performed By: #### A CAM, TSHR, CBC, LIPID, ADIFF #### [address] [address] [address] ABD/PELVIS W/ IV CONTRAST ONLYon 06-24-2024 CT ABD/PELVIS W/ IV CONTRAST ONLY ORIGINAL EXAMINATION: CT OF THE ABDOMEN AND PELVIS WITH CONTRAST 06/24/2024 10:45 am TECHNIQUE: CT of the abdomen and pelvis was performed with the administration of intravenous contrast. Multiplanar reformatted images are provided for review. Automated exposure control, iterative reconstruction, and/or weight based adjustment of the mA/kV was utilized to reduce the radiation dose to as low as reasonably achievable. COMPARISON: CT abdomen and pelvis 02/03/2021. HISTORY: ORDERING SYSTEM PROVIDED HISTORY: Reason for Exam: epigastric pain, eval for pancreatitis or gallstones. Some LUQ and RUQ and mid back pain FINDINGS: Lung bases are clear. No pleural effusion. Heart is normal in size without pericardial effusion. Normal liver morphology. No suspicious hepatic lesions. Gallbladder is unremarkable. No biliary dilatation. Spleen is normal in size. There few stable small cysts within the superior spleen. Pancreas and adrenal glands are unremarkable. Kidneys are symmetric in size without evidence of hydronephrosis or renal calculi. There is a subcentimeter right renal cortical hypodensity that is too small to characterize but likely represents a small cyst. Ureters are normal in caliber. Urinary bladder is unremarkable. Uterus and bilateral adnexa are within normal limits. Esophagus, stomach and duodenum are unremarkable. Normal caliber small and large bowel. There is mild thickening of several fluid-filled nondilated loops of small within the pelvis. There is also mild thickening of the descending and sigmoid colon. Appendix is unremarkable. Trace free pelvic fluid is likely physiologic no pneumoperitoneum. Aorta is normal in caliber. Mesenteric vessels appear widely patent. Portal venous system is patent. No pathologically enlarged abdominal or pelvic lymph nodes. Abdominal wall is intact. Mild multilevel degenerative changes throughout the visualized spine. IMPRESSION: Findings consistent with mild enterocolitis. Interpreted by: Andrew Tiwari Preliminary Report By: Andrew Tiwari Electronically signed By Andrew Tiwari Dictated Date: 06/24/2024 10:46:00 AM Prelim Date: 06/24/2024 10:54:36 AM Sign Date: 06/24/2024 10:54:36 AM Ordering Provider: GAVIN VALLADARES Normal [facility] LIPon 06-24-2024 Lipase Level 25 U/L Normal 16-77 [facility] Comment on above: Performed By: #### G FR, PETER, LIP, ANEU, CBC, ADIFF, CMP #### [facility] [address] [place], [place] [address] [place] Office Visit Reporton 12-10-2023 [place] Office Visit Report [facility] [address], [address] [place] [id number] OFFICE VISIT Date of Service: 12/10/23 MR#: [id number] Acct: [id number] Name: JOE HAYES Rep #: [id number] : 1965 Provider: Dr. Niik gunderson MD Age/Sex: 58/F Location: 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 Lounge Required: No Is patient in pain?: No Allergies nickel Allergy (Verified 12/10/23 09:32) other Is last menstrual period known: No Post menopausal: Yes Patient : No : No [facility] Medical History History of ectopic History of depression History of anxiety Surgical History History of endometrial ablation History of left oophorectomy Family History Grandmother Cancer lung Grandfather Colon cancer Social History number of children: 1 current occupational status: employed 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 Date Name GA/Weeks Outcome Route Bth Weight Infant Gen Labor Lgth Anesthesia Del Locatn Provider FOB Unknown 1993 [place] 38 live - full term Female [facility] HPI Encounter for routine gynecological examination Details: JOE HAYES is a 58 year old who presents for annual exam. dtr having a baby Last PAP: 03/01/2020 History of abnormal PAP: Last mammogram: 11/05/23 History of abnormal mammogram: no severe Colon cancer screening: no recent colonoscopies Other preventative health care screenings: PCP Dr. Valladares - PCP does yearly lab work, done last week Female Reproductive History Questions: metorrhagia: No, sexually active: Yes, dyspareunia: No and PCB: No Menopausal Symptoms: No hot flashes, No night sweats, No weight change, No mood changes, No difficulty concentrating, No sleep problems and No change in libido ROS Const Constitutional: Reports as per HPI; Denies fatigue, increased appetite, poor appetite, night sweats, weight gain or weight loss Cardio Card: Denies chest pain Resp Resp: Denies cough or dyspnea GI GI: Reports as per HPI; Denies abdominal pain, bloating, constipation, nausea or vomiting : Reports as per HPI and other; Denies difficulty voiding, dysuria, hematuria, hot flashes, nipple discharge, pelvic pain, prolapse symptoms, urinary frequency, urinary incontinence, urinary urgency, vaginal discharge, vaginal dryness, vaginal odor or vaginal pruritus Skin Skin/Breast: Denies changing lesions, breast mass, breast pain, breast skin changes or nipple discharge Psych Psych: Denies anxiety, change in libido, depression or difficulty concentrating Exam Const General: cooperative, healthy appearing, comfortable, no acute distress, well developed and well groomed HENSD Head: normal to inspection and normocephalic Ears: hearing grossly normal bilaterally and external ears normal Nose: external nose normal Face and sinus: normal facial exam Neck Neck: normal visual inspection, full ROM and no lymphadenopathy Thyroid: thyroid normal Chest Chest palpation inspection: normal inspection of the chest Breast inspection: normal inspection of the breasts and normal inspection of the axillae Breast palpation: normal palpation of the breasts, normal palpation of the axillae and no axillary lymphadenopathy Resp Effort Inspection: normal respiratory effort GI Inspection: normal to inspection and non-distended Palpation: soft, no hepatosplenomegaly and no guarding General: bladder normal to palpation External Female Exam: normal external appearance, normal appearance of the urethra and no lesions Urethra: normal appearance of the urethra and normal palpation Speculum Exam - Vagina: normal appearance of the vagina and normal vaginal discharge Speculum Exam - Cervix: normal appearance of the cervix, no cervical discharge, no lesions and nontender Bimanual Exam- Vagina Uterus: normal bimanual exam, uterine size normal, bladder normal to palpation, No tender, uterine mobil (more content not included)... Normal [facility] .Auto Diffon 12-04-2023 Basophil, Absolute 0.0 10 3/mcL Normal 0.0-0.2 [facility] Comment on above: Performed By: #### A CAM, TSHR, CBC, LIPID, ADIFF #### [address] [address] Basophils/100 WBC (Bld) 0.9 % Normal 0.0-2.5 [facility] Comment on above: Performed By: #### A CAM, TSHR, CBC, LIPID, ADIFF #### [address] [address] Eosinophil, Absolute 0.0 10 3/mcL Normal 0.0-0.4 [facility] Comment on above: Performed By: #### A CAM, TSHR, CBC, LIPID, ADIFF #### [address] [address] Eosinophils/100 WBC (Bld) 0.8 % Normal 0.0-7.0 [facility] Comment on above: Performed By: #### A CAM, TSHR, CBC, LIPID, ADIFF #### [address] [address] Lymphocyte, Absolute 2.4 10 3/mcL Normal 0.8-3.9 [facility] Comment on above: Performed By: #### A CAM, TSHR, CBC, LIPID, ADIFF #### [address] [address] Lymphocytes/100 WBC (Bld) 46.9 % Normal 10.0-50.0 [facility] Comment on above: Performed By: #### A CAM, TSHR, CBC, LIPID, ADIFF #### [address] [address] Monocyte, Absolute 0.3 10 3/mcL Normal 0.2-1.0 [facility] Comment on above: Performed By: #### A CAM, TSHR, CBC, LIPID, ADIFF #### [address] [address] Monocytes/100 WBC (Bld) 6.8 % Normal 1.7-13.0 [facility] Comment on above: Performed By: #### A CAM, TSHR, CBC, LIPID, ADIFF #### [address] [address] Neutrophils/100 WBC (Bld) 44.6 % Normal 37.0-80.0 [facility] Comment on above: Performed By: #### A CAM, TSHR, CBC, LIPID, ADIFF #### [address] [address] .NEUABSon 12-04-2023 Neutrophil, Absolute 2.3 10 3/mcL Low 2.9-6.2 [facility] Comment on above: Performed By: #### A CAM, TSHR, CBC, LIPID, ADIFF #### [address] [address] CBCon 12-04-2023 Erythrocyte distribution width (RBC) [Ratio] 15.8 % High 11.5-14.5 [facility] Comment on above: Performed By: #### A CAM, TSHR, CBC, LIPID, ADIFF #### [address] [address] Hematocrit (Bld) [Volume fraction] 43.1 % Normal 37.0-47.0 [facility] Comment on above: Performed By: #### A CAM, TSHR, CBC, LIPID, ADIFF #### [address] [address] Hgb 14.4 G/dL Normal 12.0-16.0 [facility] Comment on above: Performed By: #### A CAM, TSHR, CBC, LIPID, ADIFF #### [address] [address] MCH (RBC) [Entitic mass] 29.9 pg Normal 27.0-31.2 [facility] Comment on above: Performed By: #### A CAM, TSHR, CBC, LIPID, ADIFF #### [address] [address] MCHC 33.4 G/dL Normal 33.0-37.0 [facility] Comment on above: Performed By: #### A CAM, TSHR, CBC, LIPID, ADIFF #### [address] [address] MCV (RBC) [Entitic vol] 89.6 fL Normal 80.0-94.0 [facility] Comment on above: Performed By: #### A CAM, TSHR, CBC, LIPID, ADIFF #### [address] [address] Platelet 221 10 3/mcL Normal 130-400 [facility] Comment on above: Performed By: #### A CAM, TSHR, CBC, LIPID, ADIFF #### [address] [address] Platelet mean volume (Bld) [Entitic vol] 9.6 fL Normal 7.4-10.4 [facility] Comment on above: Performed By: #### A CAM, TSHR, CBC, LIPID, ADIFF #### [address] [address] RBC 4.81 10 6/mcL Normal 4.20-5.40 [facility] Comment on above: Performed By: #### A CAM, TSHR, CBC, LIPID, ADIFF #### [address] [address] WBC 5.1 10 3/mcL Normal 4.6-10.8 [facility] Comment on above: Performed By: #### A CAM, TSHR, CBC, LIPID, ADIFF #### [address] [address] LABORATORYOrdered By: SYSTEM SYSTEM on 12-04-2023 Basophils (Bld) [#/Vol] 0.0 103/mcL Normal 0.0 - 0.2 10^3/mcL AO Workflow SS Basophils/100 WBC (Bld) 0.9 % Normal 0.0 - 2.5 % AO Workflow SS Eosinophil, Absolute 0.0 103/mcL Normal 0.0 - 0 .4 10^3/mcL AO Workflow SS Eosinophils/100 WBC (Bld) 0.8 % Normal 0.0 - 7.0 % AO Workflow SS Erythrocyte distribution width (RBC) [Ratio] 15.8 % High 11.5 - 14.5 % AO Workflow SS Hematocrit (Bld) [Volume fraction] 43.1 % Normal 37.0 - 47.0 % AO Workflow SS Hemoglobin (Bld) [Mass/Vol] 14.4 G/dL Normal 12.0 - 16.0 G/dL AO Workflow SS Lymphocytes (Bld) [#/Vol] 2.4 103/mcL Normal 0.8 - 3.9 10^3/mcL AO Workflow SS Lymphocytes/100 WBC (Bld) 46.9 % Normal 10.0 - 50.0 % AO Workflow SS MCH (RBC) [Entitic mass] 29.9 pg Normal 27.0 - 31.2 pg AO Workflow SS MCHC 33.4 G/dL Normal 33.0 - 37.0 G/dL AO Workflow SS MCV (RBC) [Entitic vol] 89.6 fL Normal 80.0 - 94.0 fL AO Workflow SS Monocytes (Bld) [#/Vol] 0.3 103/mcL Normal 0.2 - 1.0 10^3/mcL AO Workflow SS Monocytes/100 WBC (Bld) 6.8 % Normal 1.7 - 13.0 % AO Workflow SS Neutrophils (Bld) [#/Vol] 2.3 103/mcL Low 2.9 - 6.2 10^3/mcL AO Workflow SS Neutrophils/100 WBC (Bld) 44.6 % Normal 37.0 - 80.0 % AO Workflow SS Platelet mean volume (Bld) [Entitic vol] 9.6 fL Normal 7.4 - 10.4 fL AO Workflow SS Platelets (Bld) [#/Vol] 221 103/mcL Normal 130 - 400 10^3/mcL AO Workflow SS RBC (Bld) [#/Vol] 4.81 106/mcL Normal 4.20 - 5.4 0 10^6/mcL AO Workflow SS TSH Qn 2.98 m[IU]/L Normal 0.36 - 3.74 mcIU/mL AO ADM SS WBC (Bld) [#/Vol] 5.1 103/mcL Normal 4.6 - 10.8 10^3/mcL AO Workflow SS LABORATORYOrdered By: Oxana Yap on 12-04-2023 Cholesterol [Mass/Vol] 198 mg/dL Normal 0 - 200 mg/dL AO ADM SS Comment on above: Interpretive Data: C holesterol Reference Interval: Less than 200 Desirable 200-239 Borderline high risk 240 and above High risk Cholesterol in HDL [Mass/Vol] 78 mg/dL High 40 - 60 mg/dL AO ADM SS Cholesterol in LDL [Mass/Vol] 106 mg/dL Normal 0 - 130 mg/dL AO ADM SS Triglyceride [Mass/Vol] 72 mg/dL Normal 0 - 150 mg/dL AO ADM SS Comment on above: Interpretive Data: T riglyceride Reference Interval: Less than 150 Normal 150-199 Borderline high risk 200-499 High risk 500 or higher Very high risk LIPIDon 12-04-2023 Cholesterol [Mass/Vol] 198 mg/dL Normal 0-200 [facility] Comment on above: Result Comment: Chol esterol Reference Interval: Less than 200 Desirable 200-239 Borderline high risk 240 and above High risk Performed By: #### A CAM, TSHR, CBC, LIPID, ADIFF #### [address] [address] Cholesterol in HDL [Mass/Vol] 78 mg/dL High 40-60 [facility] Comment on above: Performed By: #### A CAM, TSHR, CBC, LIPID, ADIFF #### [address] [address] Cholesterol in LDL [Mass/Vol] 106 mg/dL Normal 0-130 [facility] Comment on above: Performed By: #### A CAM, TSHR, CBC, LIPID, ADIFF #### [address] [address] Triglyceride [Mass/Vol] 72 mg/dL Normal 0-150 [facility] Comment on above: Result Comment: Trig lyceride Reference Interval: Less than 150 Normal 150-199 Borderline high risk 200-499 High risk 500 or higher Very high risk Performed By: #### A CAM, TSHR, CBC, LIPID, ADIFF #### [address] [address] TSHRon 12-04-2023 TSH Qn 2.98 m[IU]/L Normal 0.36-3.74 [facility] Comment on above: Performed By: #### A CAM, TSHR, CBC, LIPID, ADIFF #### [facility] [address] [place], [place] [address] SCRN MAMM (CAD)W/ELIA BILATo n 11-05-2023 SCRN MAMM (CAD)W/ELIA BILAT [facility] [address] [place], [place] [id number] SCRN MAMM (CAD)W/ELIA BILAT MR#: [id number] Acct: [id number] Name: JOE HAYES Rep #: [id number] : 1965 F 58 From: Jorge valenzuela MD PCP: Dr. Hammad Levine, DO Status: [facility] Study: SCRN MAMM (CAD)W/ELIA BILAT Date of Exam: 10/24 05/19 Exam# [id number] Ordering Dr: Niki Alvares [id number] MAMMOGRAPHY - BILATERAL SCREENING REASON FOR EXAM: Female, 58 years old. Routine annual screening examination. PERTINENT HISTORY: Non-contributory. TECHNIQUE: Digital bilateral breast elia (3D mammographic acquisition) in the CC and MLO projections. 2-D mediolateral oblique (MLO) and craniocaudad (CC) views of both breasts were obtained. CAD: Full Field Digital Mammography with Computer Added Detection was performed. COMPARISON: Comparison is made with prior study dated October 30, 2022 and October 25, 2021. FINDINGS: Breast Composition: There are scattered areas of fibroglandular density. There are no dominant masses or suspicious calcifications. No other significant abnormalities are identified. There has been no significant change since the prior study. BI/SCRN MAMM (CAD)W/ELIA BILAT IMPRESSION: Stable bilateral screening mammogram. Yearly follow-up mammogram recommended. (A) ASSESSMENT CATEGORY: BIRADS Category 1: Negative. A letter regarding these results will be sent to the patient by the facility within 30 days. Approximately 10% of breast cancers are not detected by mammography. A normal mammogram should not delay biopsy of a clinically suspicious abnormality. [id number] Electronically Signed: Jorge Mac MD at 8:15 EDT , CC: Dr. Hammad Levine DO; Dr. Niki Alvares MD Vp Strategic Planning: Signed [facility] XR HIP 2-3 VIEWS RIGHTon XR HIP 2-3 VIEWS RIGHT ORIGINAL EXAMINATION: XR right hip two views 10/09/2023 4:30 pm COMPARISON: None HISTORY: ORDERING SYSTEM PROVIDED HISTORY: Reason for Exam: pain, suspect arthritis, FINDINGS: No acute fracture, dislocation, lytic process or periosteal reaction is seen in the visualized bones and joints. No erosive type of arthritis. No periarticular soft tissue calcification. There is minimal hip osteoarthritis without joint space narrowing. Mild calcification superior to the greater trochanter. Unremarkable right SI joint. IMPRESSION: No acute skeletal abnormality is seen. . Minimal hip osteoarthritis and trochanteric enthesopathy. Interpreted by: Rolf Bundy MD Preliminary Report By: Rolf Bundy MD Electronically signed By Rolf Bundy MD Dictated Date: 10/10/2023 4:30:32 PM Prelim Date: 10/10/2023 4:31:06 PM Sign Date: 10/10/2023 4:31:06 PM Ordering Provider: HAMMAD LEVINE [facility] ([place]) XR SHOULDER MINIMUM 2 VIEWS RIGHTon 10-10-2023 XR SHOULDER MINIMUM 2 VIEWS RIGHT ORIGINAL EXAMINATION: XR right shoulder four views 10/09/2023 4:31 pm COMPARISON: None HISTORY: ORDERING SYSTEM PROVIDED HISTORY: Reason for Exam: pain, suspect arthritis, FINDINGS: No acute fracture, dislocation, lytic process or periosteal reaction is seen in the visualized bones and joints. No erosive type of arthritis. There is calcific tendinitis adjacent to the greater tuberosity. Normal subacromial space. No significant osteoarthritis in the glenohumeral and AC joints. Included right ribs are grossly intact. IMPRESSION: No acute skeletal abnormality is seen. . Calcific tendinitis. Interpreted by: Rolf Bundy MD Preliminary Report By: Rolf Bundy MD Electronically signed By Rolf Bundy MD Dictated Date: 10/10/2023 4:31:11 PM Prelim Date: 10/10/2023 4:32:01 PM Sign Date: 10/10/2023 4:32:01 PM Ordering Provider: HAMMAD Charles [facility] ([place]) .Auto Diffon 12-26-2022 Basophil, Absolute 0.1 10 3/mcL Normal 0.0-0.2 [facility] ([place]) Comment on above: Performed By: #### G FR, ANEU, ADIFF, LIPID, CBC, BMP #### [address] [address] Basophils/100 WBC (Bld) 1.0 % Normal 0.0-2.5 [facility] ([place]) Comment on above: Performed By: #### G FR, ANEU, ADIFF, LIPID, CBC, BMP #### [address] [address] Eosinophil, Absolute 0.1 10 3/mcL Normal 0.0-0.4 [facility] ([place]) Comment on above: Performed By: #### G FR, ANEU, ADIFF, LIPID, CBC, BMP #### [address] [address] Eosinophils/100 WBC (Bld) 2.5 % Normal 0.0-7.0 [facility] ([place]) Comment on above: Performed By: #### G FR, ANEU, ADIFF, LIPID, CBC, BMP #### [address] [address] Lymphocyte, Absolute 2.5 10 3/mcL Normal 0.8-3.9 [facility] ([place]) Comment on above: Performed By: #### G FR, ANEU, ADIFF, LIPID, CBC, BMP #### [address] [address] Lymphocytes/100 WBC (Bld) 44.3 % Normal 10.0-50.0 [facility] ([place]) Comment on above: Performed By: #### G FR, ANEU, ADIFF, LIPID, CBC, BMP #### [address] [address] Monocyte, Absolute 0.4 10 3/mcL Normal 0.2-1.0 [facility] ([place]) Comment on above: Performed By: #### G FR, ANEU, ADIFF, LIPID, CBC, BMP #### [address] [address] Monocytes/100 WBC (Bld) 6.7 % Normal 1.7-13.0 [facility] ([place]) Comment on above: Performed By: #### G FR, ANEU, ADIFF, LIPID, CBC, BMP #### [address] [address] Neutrophils/100 WBC (Bld) 45.5 % Normal 37.0-80.0 [facility] ([place]) Comment on above: Performed By: #### G FR, ANEU, ADIFF, LIPID, CBC, BMP #### [address] [address] .GFRon 12-26-2022 GFR 84 ml/min/1.73sqm Normal [facility] ([place]) Comment on above: Result Comment: GFR Population mean for , [...] 15 mL/min/1.73 square meters Performed By: #### G FR, ANEU, ADIFF, LIPID, CBC, BMP #### [address] [address] GFR Non- 69 ml/min/1.73sqm Normal [facility] ([place]) Comment on above: Result Comment: GFR Population mean for , [...] 15 mL/min/1.73 square meters Performed By: #### G FR, ANEU, ADIFF, LIPID, CBC, BMP #### [address] [address] .NEUABSon 12-26-2022 Neutrophil, Absolute 2.6 10 3/mcL Low 2.9-6.2 [facility] ([place]) Comment on above: Performed By: #### G FR, ANEU, ADIFF, LIPID, CBC, BMP #### [address] [address] BMPon 12-26-2022 BUN/Creatinine Ratio 16 ratio Normal 7-27 [facility] ([place]) Comment on above: Performed By: #### G FR, ANEU, ADIFF, LIPID, CBC, BMP #### [address] [address] Calcium [Mass/Vol] 9.2 mg/dL Normal 8.4-10.2 [facility] ([place]) Comment on above: Performed By: #### G FR, ANEU, ADIFF, LIPID, CBC, BMP #### [address] [address] Chloride [Moles/Vol] 103 mmol/L Normal 98-107 [facility] ([place]) Comment on above: Performed By: #### G FR, ANEU, ADIFF, LIPID, CBC, BMP #### [address] [address] CO2 [Moles/Vol] 29 mmol/L Normal 22-29 [facility] ([place]) Comment on above: Performed By: #### G FR, ANEU, ADIFF, LIPID, CBC, BMP #### [address] [address] Creatinine [Mass/Vol] 0.85 mg/dL Normal 0.55-1.02 On license of [facility] ([place]) Comment on above: Performed By: #### G FR, ANEU, ADIFF, LIPID, CBC, BMP #### [address] [address] Electrolyte Balance 7.0 mEq/L Normal 4.0-15.0 [facility] ([place]) Comment on above: Performed By: #### G FR, ANEU, ADIFF, LIPID, CBC, BMP #### [address] [address] Glucose [Mass/Vol] 83 mg/dL Normal 70-105 [facility] ([place]) Comment on above: Performed By: #### G FR, ANEU, ADIFF, LIPID, CBC, BMP #### [address] [address] Potassium [Moles/Vol] 4.2 mmol/L Normal 3.5-5.1 On license of [facility] ([place]) Comment on above: Performed By: #### G FR, ANEU, ADIFF, LIPID, CBC, BMP #### [address] [address] Sodium [Moles/Vol] 139 mmol/L Normal 136-145 [facility] ([place]) Comment on above: Performed By: #### G FR, ANEU, ADIFF, LIPID, CBC, BMP #### [address] [address] Urea nitrogen [Mass/Vol] 14 mg/dL Normal 7-18 [facility] ([place]) Comment on above: Performed By: #### G FR, ANEU, ADIFF, LIPID, CBC, BMP #### [address] [address] CBCon 12-26-2022 Erythrocyte distribution width (RBC) [Ratio] 14.7 % High 11.5-14.5 [facility] ([place]) Comment on above: Performed By: #### G FR, ANEU, ADIFF, LIPID, CBC, BMP #### [place] [address] Hematocrit (Bld) [Volume fraction] 41.5 % Normal 37.0-47.0 [facility] ([place]) Comment on above: Performed By: #### G FR, ANEU, ADIFF, LIPID, CBC, BMP #### [place] [address] Hgb 14.0 G/dL Normal 12.0-16.0 [facility] ([place]) Comment on above: Performed By: #### G FR, ANEU, ADIFF, LIPID, CBC, BMP #### [place] [address] MCH (RBC) [Entitic mass] 29.4 pg Normal 27.0-31.2 [facility] ([place]) Comment on above: Performed By: #### G FR, ANEU, ADIFF, LIPID, CBC, BMP #### [place] [address] MCHC 33.8 G/dL Normal 33.0-37.0 [facility] ([place]) Comment on above: Performed By: #### G FR, ANEU, ADIFF, LIPID, CBC, BMP #### [place] [address] MCV (RBC) [Entitic vol] 86.9 fL Normal 80.0-94.0 [facility] ([place]) Comment on above: Performed By: #### G FR, ANEU, ADIFF, LIPID, CBC, BMP #### [address] [address] Platelet 232 10 3/mcL Normal 130-400 [facility] ([place]) Comment on above: Performed By: #### G FR, ANEU, ADIFF, LIPID, CBC, BMP #### [place] [address] [place], [place] [address] Platelet mean volume (Bld) [Entitic vol] 10.2 fL Normal 7.4-10.4 [facility] ([place]) Comment on above: Performed By: #### G FR, ANEU, ADIFF, LIPID, CBC, BMP #### [address] [address] RBC 4.78 10 6/mcL Normal 4.20-5.40 [facility] ([place]) Comment on above: Performed By: #### G FR, ANEU, ADIFF, LIPID, CBC, BMP #### [place] [address] [place], [place] [address] WBC 5.7 10 3/mcL Normal 4.6-10.8 [facility] ([place]) Comment on above: Performed By: #### G FR, ANEU, ADIFF, LIPID, CBC, BMP #### [address] [address] LABORATORYOrdered By: SYSTEM SYSTEM on 12-26-2022 Basophil, Absolute 0.1 103/mcL Invalid Interpretation Code 0.0 - 0.2 10^3/mcL AO Workflow SS Basophils/100 WBC (Bld) 1.0 % Invalid Interpretation Code 0.0 - 2.5 % AO Workflow SS Calcium [Mass/Vol] 9.2 mg/dL Invalid Interpretation Code 8.4 - 10.2 mg/dL AO ADM SS Chloride [Moles/Vol] 103 mmol/L Invalid Interpretation Code 98 - 107 mmol/L AO ADM SS CO2 [Moles/Vol] 29 mmol/L Invalid Interpretation Code 22 - 29 mmol/L AO ADM SS Creatinine [Mass/Vol] 0.85 mg/dL Invalid Interpretation Code 0.55 - 1.02 mg/dL AO ADM SS Electrolyte Balance 7.0 mEq/L Invalid Interpretation Code 4.0 - 15.0 mEq/L AO ADM SS Eosinophil, Absolute 0.1 103/mcL Invalid Interpretation Code 0.0 - 0.4 10^3/mcL AO Workflow SS Eosinophils/100 WBC (Bld) 2.5 % Invalid Interpretation Code 0.0 - 7.0 % AO Workflow SS Erythrocyte distribution width (RBC) [Ratio] 14.7 % Invalid Interpretation Code 11.5 - 14.5 % AO Workflow SS GFR/1.73 sq M.predicted among blacks MDRD (S/P/Bld) [Vol rate/Area] 84 ml/min/1.73sqm Invalid Interpretation Code AO Chemistry S Comment on above: Interpretive Data: GFR Population mean for , Non- Americans Ages 20-29 = 116 mL/min/1.73 sq.m. Ages 30-39 = 107 mL/min/1.73 sq.m. Ages 40-49 = 99 mL/min/1.73 sq.m. Ages 50-59 = 93 mL/min/1.73 sq.m. Ages 60-69 = 85 mL/min/1.73 sq.m. Ages 70+ = 75 mL/min/1.73 sq.m. Chronic Kidney Disease: Less than 60 mL/min/1.73 square meters End Stage Renal Disease: Less than 15 mL/min/1.73 square meters GFR/1.73 sq M.predicted among non-blacks MDRD (S/P/Bld) [Vol rate/Area] 69 ml/min/1.73sqm Invalid Interpretation Code AO Chemistry S Comment on above: Interpretive Data: GFR Population mean for , Non- Americans Ages 20-29 = 116 mL/min/1.73 sq.m. Ages 30-39 = 107 mL/min/1.73 sq.m. Ages 40-49 = 99 mL/min/1.73 sq.m. Ages 50-59 = 93 mL/min/1.73 sq.m. Ages 60-69 = 85 mL/min/1.73 sq.m. Ages 70+ = 75 mL/min/1.73 sq.m. Chronic Kidney Disease: Less than 60 mL/min/1.73 square meters End Stage Renal Disease: Less than 15 mL/min/1.73 square meters Glucose [Mass/Vol] 83 mg/dL Invalid Interpretation Code 70 - 105 mg/dL AO ADM SS Hematocrit (Bld) [Volume fraction] 41.5 % Invalid Interpretation Code 37.0 - 47.0 % AO Workflow SS Hemoglobin (Bld) [Mass/Vol] 14.0 G/dL Invalid Interpretation Code 12.0 - 16.0 G/dL AO Workflow SS Lymphocyte, Absolute 2.5 103/mcL Invalid Interpretation Code 0.8 - 3.9 10^3/mcL AO Workflow SS Lymphocytes/100 WBC (Bld) 44.3 % Invalid Interpretation Code 10.0 - 50.0 % AO Workflow SS MCH (RBC) [Entitic mass] 29.4 pg Invalid Interpretation Code 27.0 - 31.2 pg AO Workflow SS MCHC 33.8 G/dL Invalid Interpretation Code 33.0 - 37.0 G/dL AO Workflow SS MCV (RBC) [Entitic vol] 86.9 fL Invalid Interpretation Code 80.0 - 94.0 fL AO Workflow SS Monocyte, Absolute 0.4 103/mcL Invalid Interpretation Code 0.2 - 1.0 10^3/mcL AO Workflow SS Monocytes/100 WBC (Bld) 6.7 % Invalid Interpretation Code 1.7 - 13.0 % AO Workflow SS Neutrophil, Absolute 2.6 103/mcL Invalid Interpretation Code 2.9 - 6.2 10^3/mcL AO Workflow SS Neutrophils/100 WBC (Bld) 45.5 % Invalid Interpretation Code 37.0 - 80.0 % AO Workflow SS Platelet mean volume (Bld) [Entitic vol] 10.2 fL Invalid Interpretation Code 7.4 - 10.4 fL AO Workflow SS Platelets (Bld) [#/Vol] 232 103/mcL Invalid Interpretation Code 130 - 400 10^3/mcL AO Workflow SS Potassium [Moles/Vol] 4.2 mmol/L Invalid Interpretation Code 3.5 - 5.1 mmol/L AO ADM SS RBC (Bld) [#/Vol] 4.78 106/mcL Invalid Interpretation Code 4.20 - 5.40 10^6/mcL AO Workflow SS Sodium [Moles/Vol] 139 mmol/L Invalid Interpretation Code 136 - 145 mmol/L AO ADM SS Urea nitrogen [Mass/Vol] 14 mg/dL Invalid Interpretation Code 7 - 18 mg/dL AO ADM SS Urea nitrogen/Creatinine [Mass ratio] 16 ratio Invalid Interpretation Code 7 - 27 ratio AO ADM SS WBC (Bld) [#/Vol] 5.7 103/mcL Invalid Interpretation Code 4.6 - 10.8 10^3/mcL AO Workflow SS LABORATORYOrdered By: Marian Joy on 12-26-2022 Cholesterol [Mass/Vol] 188 mg/dL Invalid Interpretation Code 0 - 200 mg/dL AO ADM SS Comment on above: Interpretive Data: C holesterol Reference Interval: Less than 200 Desirable 200-239 Borderline high risk 240 and above High risk Cholesterol in HDL [Mass/Vol] 66 mg/dL Invalid Interpretation Code 40 - 60 mg/dL AO ADM SS Cholesterol in LDL [Mass/Vol] 105 mg/dL Invalid Interpretation Code 0 - 130 mg/dL AO ADM SS Triglyceride [Mass/Vol] 85 mg/dL Invalid Interpretation Code 0 - 150 mg/dL AO ADM SS Comment on above: Interpretive Data: T riglyceride Reference Interval: Less than 150 Normal 150-199 Borderline high risk 200-499 High risk 500 or higher Very high risk LIPIDon 12-26-2022 Cholesterol [Mass/Vol] 188 mg/dL Normal 0-200 [facility] ([place]) Comment on above: Result Comment: Chol esterol Reference Interval: Less than 200 Desirable 200-239 Borderline high risk 240 and above High risk Performed By: #### G FR, ANEU, ADIFF, LIPID, CBC, BMP #### [address] [address] Cholesterol in HDL [Mass/Vol] 66 mg/dL High 40-60 [facility] ([place]) Comment on above: Performed By: #### G FR, ANEU, ADIFF, LIPID, CBC, BMP #### [address] [address] Cholesterol in LDL [Mass/Vol] 105 mg/dL Normal 0-130 [facility] ([place]) Comment on above: Performed By: #### G FR, ANEU, ADIFF, LIPID, CBC, BMP #### [address] [address] Triglyceride [Mass/Vol] 85 mg/dL Normal 0-150 [facility] ([place]) Comment on above: Result Comment: Trig lyceride Reference Interval: Less than 150 Normal 150-199 Borderline high risk 200-499 High risk 500 or higher Very high risk Performed By: #### G FR, ANEU, ADIFF, LIPID, CBC, BMP #### [address] [address] LABORATORYOrdered By: Oxana Yap on 12-12-2021 Albumin BCP dye [Mass/Vol] 4.2 G/dL Invalid Interpretation Code 3.5 - 5.0 G/dL AO ADM SS Albumin/Globulin [Mass ratio] 1.4 {ratio} Invalid Interpretation Code 1.1 - 2.5 ratio AO ADM SS ALP [Catalytic activity/Vol] 65 U/L Invalid Interpretation Code 40 - 135 U/L AO ADM SS ALT With P-5'-P [Catalytic activity/Vol] 26 U/L Invalid Interpretation Code 14 - 59 U/L AO ADM SS AST With P-5'-P [Catalytic activity/Vol] 13 U/L Invalid Interpretation Code 10 - 40 U/L AO ADM SS Bilirubin [Mass/Vol] 0.7 mg/dL Invalid Interpretation Code 0.2 - 1.0 mg/dL AO ADM SS Calcium [Mass/Vol] 9.1 mg/dL Invalid Interpretation Code 8.4 - 10.2 mg/dL AO ADM SS Chloride [Moles/Vol] 103 mmol/L Invalid Interpretation Code 98 - 107 mmol/L AO ADM SS Cholesterol [Mass/Vol] 204 mg/dL Invalid Interpretation Code 0 - 200 mg/dL AO ADM SS Cholesterol in HDL [Mass/Vol] 80 mg/dL Invalid Interpretation Code 40 - 60 mg/dL AO ADM SS Cholesterol in LDL [Mass/Vol] 113 mg/dL Invalid Interpretation Code 0 - 130 mg/dL AO ADM SS CO2 [Moles/Vol] 28 mmol/L Invalid Interpretation Code 22 - 29 mmol/L AO ADM SS Creatinine [Mass/Vol] 0.80 mg/dL Invalid Interpretation Code 0.55 - 1.02 mg/dL AO ADM SS Electrolyte Balance 9.0 mEq/L Invalid Interpretation Code 4.0 - 15.0 mEq/L AO ADM SS Globulin 2.9 G/dL Invalid Interpretation Code AO ADM SS Glucose [Mass/Vol] 80 mg/dL Invalid Interpretation Code 70 - 105 mg/dL AO ADM SS HbA1c (Bld) [Mass fraction] 5.6 % Invalid Interpretation Code 4.3 - 6.4 % AO ADM SS Potassium [Moles/Vol] 3.9 mmol/L Invalid Interpretation Code 3.5 - 5.1 mmol/L AO ADM SS Protein [Mass/Vol] 7.1 G/dL Invalid Interpretation Code 6.4 - 8.2 G/dL AO ADM SS Sodium [Moles/Vol] 140 mmol/L Invalid Interpretation Code 136 - 145 mmol/L AO ADM SS Triglyceride [Mass/Vol] 55 mg/dL Invalid Interpretation Code 0 - 150 mg/dL AO ADM SS Urea nitrogen [Mass/Vol] 10 mg/dL Invalid Interpretation Code 7 - 18 mg/dL AO ADM SS Urea nitrogen/Creatinine [Mass ratio] 12 ratio Invalid Interpretation Code 7 - 27 ratio AO ADM SS LABORATORYOrdered By: Inna Cowan on 12-12-2021 Basophil, Absolute 0.0 103/mcL Invalid Interpretation Code 0.0 - 0.2 10^3/mcL AO Workflow SS Basophils/100 WBC (Bld) 0.6 % Invalid Interpretation Code 0.0 - 2.5 % AO Workflow SS Eosinophil, Absolute 0.0 103/mcL Invalid Interpretation Code 0.0 - 0.4 10^3/mcL AO Workflow SS Eosinophils/100 WBC (Bld) 0.7 % Invalid Interpretation Code 0.0 - 7.0 % AO Workflow SS Erythrocyte distribution width (RBC) [Ratio] 14.8 % Invalid Interpretation Code 11.5 - 14.5 % AO Workflow SS Hematocrit (Bld) [Volume fraction] 40.8 % Invalid Interpretation Code 37.0 - 47.0 % AO Workflow SS Hemoglobin (Bld) [Mass/Vol] 14.1 G/dL Invalid Interpretation Code 12.0 - 16.0 G/dL AO Workflow SS Lymphocyte, Absolute 2.3 103/mcL Invalid Interpretation Code 0.8 - 3.9 10^3/mcL AO Workflow SS Lymphocytes/100 WBC (Bld) 35.3 % Invalid Interpretation Code 10.0 - 50.0 % AO Workflow SS MCH (RBC) [Entitic mass] 29.9 pg Invalid Interpretation Code 27.0 - 31.2 pg AO Workflow SS MCHC 34.5 G/dL Invalid Interpretation Code 33.0 - 37.0 G/dL AO Workflow SS MCV (RBC) [Entitic vol] 86.9 fL Invalid Interpretation Code 80.0 - 94.0 fL AO Workflow SS Monocyte, Absolute 0.4 103/mcL Invalid Interpretation Code 0.2 - 1.0 10^3/mcL AO Workflow SS Monocytes/100 WBC (Bld) 5.5 % Invalid Interpretation Code 1.7 - 13.0 % AO Workflow SS Neutrophil, Absolute 3.8 103/mcL Invalid Interpretation Code 2.9 - 6.2 10^3/mcL AO Workflow SS Neutrophils/100 WBC (Bld) 57.9 % Invalid Interpretation Code 37.0 - 80.0 % AO Workflow SS Platelet mean volume (Bld) [Entitic vol] 9.1 fL Invalid Interpretation Code 7.4 - 10.4 fL AO Workflow SS Platelets (Bld) [#/Vol] 218 103/mcL Invalid Interpretation Code 130 - 400 10^3/mcL AO Workflow SS RBC (Bld) [#/Vol] 4.70 106/mcL Invalid Interpretation Code 4.20 - 5.40 10^6/mcL AO Workflow SS WBC (Bld) [#/Vol] 6.5 103/mcL Invalid Interpretation Code 4.6 - 10.8 10^3/mcL AO Workflow SS LABORATORYOrdered By: SYSTEM SYSTEM on 12-12-2021 GFR 90 ml/min/1.73sqm Invalid Interpretation Code AO Chemistry S GFR Non- 74 ml/min/1.73sqm Invalid Interpretation Code AO Chemistry S LABORATORYOrdered By: Lotus Neal on 01-31-2021 Albumin BCP dye [Mass/Vol] 4.2 G/dL Invalid Interpretation Code 3.5 - 5.0 G/dL AO ADM SS Albumin/Globulin [Mass ratio] 1.3 {ratio} Invalid Interpretation Code 1.1 - 2.5 ratio AO ADM SS ALP [Catalytic activity/Vol] 64 U/L Invalid Interpretation Code 40 - 135 U/L AO ADM SS ALT With P-5'-P [Catalytic activity/Vol] 32 U/L Invalid Interpretation Code 14 - 59 U/L AO ADM SS Amylase [Catalytic activity/Vol] 69 U/L Invalid Interpretation Code 25 - 115 U/L AO ADM SS AST With P-5'-P [Catalytic activity/Vol] 17 U/L Invalid Interpretation Code 10 - 40 U/L AO ADM SS Bilirubin [Mass/Vol] 0.5 mg/dL Invalid Interpretation Code 0.2 - 1.0 mg/dL AO ADM SS Calcium [Mass/Vol] 9.3 mg/dL Invalid Interpretation Code 8.4 - 10.2 mg/dL AO ADM SS Chloride [Moles/Vol] 102 mmol/L Invalid Interpretation Code 98 - 107 mmol/L AO ADM SS CO2 [Moles/Vol] 29 mmol/L Invalid Interpretation Code 22 - 29 mmol/L AO ADM SS Creatinine [Mass/Vol] 0.71 mg/dL Invalid Interpretation Code 0.55 - 1.02 mg/dL AO ADM SS Electrolyte Balance 10.0 mEq/L Invalid Interpretation Code AO ADM SS Globulin 3.2 G/dL Invalid Interpretation Code AO ADM SS Glucose [Mass/Vol] 109 mg/dL Invalid Interpretation Code 70 - 105 mg/dL AO ADM SS Lipase [Catalytic activity/Vol] 96 U/L Invalid Interpretation Code 73 - 393 U/L AO ADM SS Potassium [Moles/Vol] 4.3 mmol/L Invalid Interpretation Code 3.5 - 5.1 mmol/L AO ADM SS Protein [Mass/Vol] 7.4 G/dL Invalid Interpretation Code 6.4 - 8.2 G/dL AO ADM SS Sodium [Moles/Vol] 141 mmol/L Invalid Interpretation Code 136 - 145 mmol/L AO ADM SS Urea nitrogen [Mass/Vol] 8 mg/dL Invalid Interpretation Code 7 - 18 mg/dL AO ADM SS Urea nitrogen/Creatinine [Mass ratio] 11 ratio Invalid Interpretation Code 7 - 27 ratio AO ADM SS LABORATORYOrdered By: SYSTEM SYSTEM on 01-31-2021 GFR 104 ml/min/1.73sqm Invalid Interpretation Code AO Chemistry S GFR Non- 86 ml/min/1.73sqm Invalid Interpretation Code AO Chemistry S LABORATORYOrdered By: Kameron Espino on 01-04-2021 Albumin BCP dye [Mass/Vol] 3.8 G/dL Invalid Interpretation Code 3.5 - 5.0 G/dL AO ADM SS Albumin/Globulin [Mass ratio] 1.2 {ratio} Invalid Interpretation Code 1.1 - 2.5 ratio AO ADM SS ALP [Catalytic activity/Vol] 69 U/L Invalid Interpretation Code 40 - 135 U/L AO ADM SS ALT With P-5'-P [Catalytic activity/Vol] 28 U/L Invalid Interpretation Code 14 - 59 U/L AO ADM SS AST With P-5'-P [Catalytic activity/Vol] 20 U/L Invalid Interpretation Code 10 - 40 U/L AO ADM SS Bilirubin [Mass/Vol] 0.7 mg/dL Invalid Interpretation Code 0.2 - 1.0 mg/dL AO ADM SS Calcium [Mass/Vol] 8.9 mg/dL Invalid Interpretation Code 8.4 - 10.2 mg/dL AO ADM SS Chloride [Moles/Vol] 105 mmol/L Invalid Interpretation Code 98 - 107 mmol/L AO ADM SS Cholesterol [Mass/Vol] 187 mg/dL Invalid Interpretation Code 0 - 200 mg/dL AO ADM SS Cholesterol in HDL [Mass/Vol] 71 mg/dL Invalid Interpretation Code 40 - 60 mg/dL AO ADM SS Cholesterol in LDL [Mass/Vol] 97 mg/dL Invalid Interpretation Code 0 - 130 mg/dL AO ADM SS CO2 [Moles/Vol] 32 mmol/L Invalid Interpretation Code 22 - 29 mmol/L AO ADM SS Creatinine [Mass/Vol] 0.91 mg/dL Invalid Interpretation Code 0.55 - 1.02 mg/dL AO ADM SS Electrolyte Balance 4.0 mEq/L Invalid Interpretation Code AO ADM SS Globulin 3.1 G/dL Invalid Interpretation Code AO ADM SS Glucose [Mass/Vol] 91 mg/dL Invalid Interpretation Code 70 - 105 mg/dL AO ADM SS Potassium [Moles/Vol] 4.3 mmol/L Invalid Interpretation Code 3.5 - 5.1 mmol/L AO ADM SS Protein [Mass/Vol] 6.9 G/dL Invalid Interpretation Code 6.4 - 8.2 G/dL AO ADM SS Sodium [Moles/Vol] 141 mmol/L Invalid Interpretation Code 136 - 145 mmol/L AO ADM SS Triglyceride [Mass/Vol] 95 mg/dL Invalid Interpretation Code 0 - 150 mg/dL AO ADM SS Urea nitrogen [Mass/Vol] 11 mg/dL Invalid Interpretation Code 7 - 18 mg/dL AO ADM SS Urea nitrogen/Creatinine [Mass ratio] 12 ratio Invalid Interpretation Code 7 - 27 ratio AO ADM SS LABORATORYOrdered By: Yoanna Davidson on 01-04-2021 Basophil, Absolute 0.00 103/mcL Invalid Interpretation Code 0.00 - 0.19 10^3/mcL AO Auto Heme SS Basophils/100 WBC (Bld) 0.9 % Invalid Interpretation Code 0.0 - 2.5 % AO Auto Heme SS Eosinophil, Absolute 0.10 103/mcL Invalid Interpretation Code 0.00 - 0.40 10^3/mcL AO Auto Heme SS Eosinophils/100 WBC (Bld) 2.3 % Invalid Interpretation Code 0.0 - 7.0 % AO Auto Heme SS Erythrocyte distribution width (RBC) [Ratio] 14.7 % Invalid Interpretation Code 11.5 - 14.5 % AO Auto Heme SS Hematocrit (Bld) [Volume fraction] 40.7 % Invalid Interpretation Code 37.0 - 47.0 % AO Auto Heme SS Hemoglobin (Bld) [Mass/Vol] 13.8 G/dL Invalid Interpretation Code 12.0 - 16.0 G/dL AO Auto Heme SS Lymphocyte, Absolute 2.30 103/mcL Invalid Interpretation Code 0.77 - 3.85 10^3/mcL AO Auto Heme SS Lymphocytes/100 WBC (Bld) 47.8 % Invalid Interpretation Code 10.0 - 50.0 % AO Auto Heme SS MCH (RBC) [Entitic mass] 30.1 pg Invalid Interpretation Code 27.0 - 31.2 pg AO Auto Heme SS MCHC (RBC) [Mass/Vol] 33.8 G/dL Invalid Interpretation Code 33.0 - 37.0 G/dL AO Auto Heme SS MCV (RBC) [Entitic vol] 89.0 fL Invalid Interpretation Code 80.0 - 94.0 fL AO Auto Heme SS Monocyte, Absolute 0.30 103/mcL Invalid Interpretation Code 0.15 - 1.00 10^3/mcL AO Auto Heme SS Monocytes/100 WBC (Bld) 6.5 % Invalid Interpretation Code 1.7 - 13.0 % AO Auto Heme SS Neutrophil, Absolute 2.00 103/mcL Invalid Interpretation Code 2.85 - 6.16 10^3/mcL AO Auto Heme SS Neutrophils/100 WBC (Bld) 42.5 % Invalid Interpretation Code 37.0 - 80.0 % AO Auto Heme SS Platelet mean volume (Bld) [Entitic vol] 9.7 fL Invalid Interpretation Code 7.4 - 10.4 fL AO Auto Heme SS Platelets (Bld) [#/Vol] 212 103/mcL Invalid Interpretation Code 130 - 400 10^3/mcL AO Auto Heme SS RBC (Bld) [#/Vol] 4.57 106/mcL Invalid Interpretation Code 4.20 - 5.40 10^6/mcL AO Auto Heme SS WBC (Bld) [#/Vol] 4.70 103/mcL Invalid Interpretation Code 4.60 - 10.80 10^3/mcL AO Auto Heme SS LABORATORYOrdered By: SYSTEM SYSTEM on 01-04-2021 GFR 78 ml/min/1.73sqm Invalid Interpretation Code AO Chemistry S GFR Non- 64 ml/min/1.73sqm Invalid Interpretation Code AO Chemistry S Lab Report: PAP I-G HPV Hi R iskon 01-26-2017 HPV HC,HGH RISK Negative Invalid Interpretation Code Negative [facility] Office Visit: est annualon 1 Documentation of current medications (procedure) Done Invalid Interpretation Code [facility] Fall risk assessment No Invalid Interpretation Code [facility] Tobacco smoking status NHIS Never Invalid Interpretation Code [facility] Tobacco use CPHS Never smoker Invalid Interpretation Code [facility] Office Visit: UC: spider bit e/poison oak?on 09-27-2016 Documentation of current medications (procedure) Done Invalid Interpretation Code [facility] Work Phone: Fall risk assessment No [facility] Work Phone: Protein mass conc Done [facility] Work Phone: Tobacco smoking status NHIS Never smoker [facility] Work Phone: Tobacco use CPHS Never smoker Invalid Interpretation Code [facility] Work Phone: Office Visit: est annualon 1 Breast Mammogram screening Normal Bilateral Invalid Interpretation Code [facility] Office Visit: est annualon 0 03-26-2011 General categories [Interpretation] of Cervical or vaginal smear or scraping by Cyto stain Normal Invalid Interpretation Code [facility] Vital Signs Date Time Vital Sign Value Performing Clinician Gabby monteiro 01-23-2017 12:57-0400 BMI (Body Mass Index) 25.72 kg/m2 Niki Alvares MD [facility] 01-23-2017 12:57-0400 Body Temperature 97.5 [degF] Niki Alvares MD [facility] 01-23-2017 12:57-0400 BP Diastolic 69 mm[Hg] Niki Alvares MD [facility] 01-23-2017 12:57-0400 BP Systolic 124 mm[Hg] Niki Alvares MD [facility] 01-23-2017 12:57-0400 Height 168.91 cm Niki Alvares MD [facility] 01-23-2017 12:57-0400 Pulse (Heart Rate) 58 /min Niki Alvares MD [facility] 01-23-2017 12:57-0400 Respiratory Rate 16 /min Niki Alvares MD [facility] 01-23-2017 12:57-0400 Weight 73.39 kg Niki Alvares MD [facility] 09-27-2016 12:06-0400 BMI (Body Mass Index) 25.72 kg/m2 Maru Buckley LPN [facility] Work Phone: 09-27-2016 12:06-0400 Body Temperature 98.1 [degF] Maru Buckley LPN [facility] Work Phone: 09-27-2016 12:06-0400 BP Diastolic 62 mm[Hg] Maru Buckley LPN [facility] Work Phone: 09-27-2016 12:06-0400 BP Systolic 110 mm[Hg] Maru Buckley LPN [facility] Work Phone: 09-27-2016 12:06-0400 Height 168.91 cm Maru Buckley LPN [facility] Work Phone: 09-27-2016 12:06-0400 Pulse (Heart Rate) 55 /min Maru Buckley LPN [facility] Work Phone: 09-27-2016 12:06-0400 Respiratory Rate 14 /min Maru Buckley LPN [facility] Work Phone: 09-27-2016 12:06-0400 Weight 73.39 kg Maru Buckley LPN [facility] Work Phone: Encounters Encounter Date Encounter Type Care Provider Facility Start: 06-24-2024 End: 06-24-2024 ambulatory GAVIN VALLADARES DO Facility:[facility] Start: 06-24-2024 End: 06-24-2024 ambulatory GAVIN VALLADARES DO Facility:[facility] Start: 12-10-2023 Encounter for gynecological examination (general) (routine) without abnormal findings Niki Alvares [facility] Start: 12-10-2023 End: 12-10-2023 ambulatory Hammad Levine Facility:[facility] Start: 12-04-2023 End: 12-04-2023 ambulatory GAVIN VALLADARES DO Facility:[facility] Start: 12-04-2023 End: 12-04-2023 Patient encounter procedure GAVIN Adilene VALLADARES DO [facility] Start: 11-05-2023 End: 11-05-2023 ambulatory Niki Giorgio Facility:[facility] Start: 10-09-2023 End: 10-09-2023 ambulatory GAVIN VALLADARES DO Facility:[facility] Start: 10-09-2023 End: 10-09-2023 Patient encounter procedure HAMMAD LEVINE DO [facility] Start: 12-26-2022 End: 12-26-2022 ambulatory GAVIN VALLADARES DO Facility:[facility] Start: 12-26-2022 End: 12-26-2022 Patient encounter procedure GAVIN VALLADARES DO [facility] Start: 10-30-2022 End: 10-30-2022 ambulatory [facility] Work Phone: Start: 10-30-2022 End: 10-30-2022 Patient encounter procedure [facility] Work Phone: Start: 12-12-2021 End: 12-12-2021 Patient encounter procedure HAMMAD LEVINE DO [facility] Start: 10-25-2021 End: 10-25-2021 Patient encounter procedure [facility] Start: 02-03-2021 End: 02-03-2021 Patient encounter procedure JAMEL GILL 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-FILM COMPOSER [facility] Start: 01-31-2021 End: 01-31-2021 Patient encounter procedure JAMEL GILL 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 [facility] Start: 01-04-2021 End: 01-04-2021 Patient encounter procedure BRIAN COHEN MD [facility] Procedures Date Procedure Procedure Detail Performing Clinician Start: 10-30-2022 Screening mammography Start: 10-25-2021 Screening mammography Start: 01-23-2017 End: 01-28-2017 Mammogram, screening Niki jc MD Work Phone: Start: 01-23-2017 End: 01-28-2017 Referral to surgeon Nkii Alvares MD Work Phone: Start: 01-31-2016 History of eyelid surgery BRIAN COHEN MD Comment on above: bilateral [facility] Start: 03-26-1987 Bilateral tubal ligation BRIAN COHEN MD Plan of Treatment Date Care Activity Detail Author Start: 01-23-2017 End: 01-28-2017 Mammogram, screening Mammogram, Screening, both breasts [facility] Start: 01-23-2017 End: 01-28-2017 Surgery Referral Surgery Referral Andrew Acuna, [address], [address], [place], [address] [facility] Start: 01-23-2017 End: 01-23-[address] [facility] Start: 09-27-2016 End: 09-27-2016 Appointment Appointment [facility] Work Phone: Patient Education INSECT%20BITE% 20OR%20STI NG [facility] Work Phone: Immunizations Immunization Date Immunization Notes Care Provider Fa taylor 12-14-2021 tetanus toxoid, redu heidy diphtheria toxoid, and acellular pertussis vaccine, adsorbed; Translations: [Boostrix (Tdap)] GAVIN VALLADARES DO [facility] 12-14-2021 influenza, injectabl e, quadrivalent, contains preservative; Translations: [Fluarix PF Quadrivalent ] GAVIN VALLADARES DO [facility] 01-04-2021 SARS-CoV-2 mRNA (tozinameran) vaccine HAMMAD DELACRUZANISHA DO [facility] Comment on above: Result Comment: 2021: [id number] 12-14-2020 SARS-CoV-2 mRNA (tozinameran) vaccine HAMMAD JAYMEANISHA DO [facility] Comment on above: Result Comment: 2021: [id number] 12-03-2019 influenza, injectabl e, quadrivalent, preservative free; Translations: [Fluarix PF Quadrivalent ] BRIAN COHEN MD [facility] 12-25-2018 influenza, injectabl e, quadrivalent, preservative free; Translations: [Fluarix PF Quadrivalent ] BRIAN COHEN MD [facility] 01-02-2018 influenza virus vaccine, unspecified formulation HAMMAD JAYMEANISHA DO [facility] 01-03-2017 influenza virus vaccine, unspecified formulation HAMMAD LEVINE DO [facility] 01-07-2016 influenza virus vaccine, unspecified formulation HAMMAD LEVINE DO [facility] 12-24-2014 influenza virus vaccine, unspecified formulation HAMMAD LEVINE DO [facility] 12-02-2012 tetanus toxoid, redu heidy diphtheria toxoid, and acellular pertussis vaccine, adsorbed HAMMAD LEVINE DO [facility] Payers Date Payer Category Payer Private Health Insurance [id number] 2023 Self-pay [id number] 2023 Private Health Insurance [id number] 2022 Unknown [id number] 1965 Unknown [id number] 2.16.8 [id number] 1966 Unknown [id number] 2.16.8 [id number] 1966 Unknown [id number] 2.16.8 [id number] 1966 Unknown [id number] 2.16.8 [id number] 1966 Unknown [id number] 2.16.8 [id number] Unknown [id number] Unknown [id number] 2.16.8 [id number] Unknown [id number] 2.16.8 [id number] Social History Date Type Detail Facility Start: 12-03-2019 Never smoked t obacco (finding) [facility] Comment on above: no tobacco smoke exp osure Start: 1965 Sex Assigned At Female [facility] Start: 09-01-2021 End: 12-05-2021 Tobacco smoking status INIS Unknown if ever smoked [facility] Start: 03-11-2019 Non-smoker [facility] Evaluation + Plan note 01-31-2021 Radiology Note Date & Type Note Facility 01-31-2021 Evaluation + Plan note Future Scheduled TestsCT Abd/Pelvis w/ IV Contrast Only 01/31/21 [facility] Evaluation + Plan note Note Date & Type Note Facility Evaluation + Plan note Future Appointments Appointment Date:01/10/2021 03:30:00 PM Scheduled Provider:BRIAN COHEN MD Location:[facility] Appointment Type:PC Wellness Annual [facility] Evaluation + Plan note Note Date & Type Note Facility Evaluation + Plan note Future Appointments Appointment Date:12/14/2021 09:30:00 AM Scheduled Provider:HAMMAD LEVINE DO Location:[facility] Appointment Type: Wellness Annual Diagnostic Tests PendingHepatitis C Antibody IgG 12/12/21 [facility] Evaluation + Plan note Note Date & Type Note Facility Evaluation + Plan note Future Appointments Appointment Date:01/03/2023 08:30:00 AM Scheduled Provider:GAVIN VALLADARES DO Location:[facility] Appointment Type:PC Wellness Annual [facility] Evaluation + Plan note Note Date & Type Note Facility Evaluation + Plan note Future Appointments Appointment Date:10/15/2023 04:30:00 PM Scheduled Provider:HAMMAD LEVINE DO Location:[facility] Appointment Type:PC OV Follow Up Appointment Date:12/05/2023 09:30:00 AM Scheduled Provider:GAVIN VALLADARES DO Location:[facility] Appointment Type: Wellness Annual [facility] Evaluation + Plan note Radiology Note Date & Type Note Facility Evaluation + Plan note Future Appointments Appointment Date:12/05/2023 09:30:00 AM Scheduled Provider:GAVIN VALLADARES DO Location:[facility] Appointment Type: Wellness Annual Future Scheduled TestsMRI Shoulder w/o Contrast Right 10/15/23 [facility] Evaluation note Note Date & Type Note Facility Evaluation note No assessment information availa [facility] Work Phone: Hospital course Narrative Note Date & Type Note Facility Hospital course Narrative No data available for this section [facility] Hospital Discharge instructions Note Date & Type Note Facility Hospital Discharge instructions No data available for this section [facility] Progress note Note Date & Type Note Facility Progress note No data available for this section [facility] Chief Complaint and Reason for Visit Chief Complaint SCREENING Family History No Family History Records Found Relationship Condition Age at Onset Recorded Date/T tim grandmother Malignant neoplasm Unknown grandfather Malignant neoplasm of colon Unknown Advance Directives No Advanced Directives Records Found Advance Directive Response Recorded Date/ Time Living Will No September 01, 2021 1 :16pm Power of Nuclear Auxiliary Operator No September 01, 2021 1:16pm Summary Purpose Additional Source Comments Goals (unrecognized section and content) Goals may be documented in a n alternate section Care Team (unrecognized sect ion and content) Care Team Personnel Name: HAMMAD LEVINE DO Position: P4 Physician - Primary Care Med Service: Active Provider Member Role: Primary Care Physician Address: Address: [address] Care Team Related Persons Name: SMITA HAYES Care Teams (unrecognized sec tion and content) Team Status: Active Member Role Status Dates Dr. Brian Cohen MD Family Provider Active Dr. Hammad Levine DO Primary Care Provider Active Team Status: Inactive Member Role Status Dates Dr. Hammad Levine DO Primary Care Provider Active Dr. Niki Alvares MD Attending Provider, Referr ing Provider Active INFORMATION SOURCE (unrecogn ized section and content) DATE CREATED AUTHOR 10/13/2023 [facility] ([place]) DATE CREATED AUTHOR AUTHOR'S ORGANIZ ATION 12/11/2023 [facility] DATE CREATED AUTHOR AUTHOR'S ORGANIZ ATION 06/28/2024 [facility] FOR RECORDS PERTAINING TO PATIENTS WHO ARE OR HAVE BEEN ENROLLED IN A CHEMICAL DEPENDENCY/SUBSTANCEABUSE PROGRAM, SOME INFORMATION MAY BE OMITTED. This clinical summary was aggregated from multiple sources. Caution should be exercised in using it in the provision of clinical care. This summary normalizes information from multiple sources, and as a consequence, information in this document may materially change the coding, format and clinical context of patient data. In addition, data may be omitted in some cases. CLINICAL DECISIONS SHOULD BE BASED ON THE PRIMARY CLINICAL RECORDS. [facility] [employer] [facility]. provides no warranty or guarantee of the accuracy or completeness of information in this document.
== END | disposition home or self-care (01) ==
LOC: OPBI 07:07
PROVIDERS: PCP Student in an Organized Health Care Education/Training Program; Referring Provider Obstetrics & Gynecology; Visit Provider Obstetrics & Gynecology
DX: Z12.31 Encounter for screening mammogram for malignant neoplasm of breast (principal)
CPT/HCPCS: 77063; 77067

== ENCOUNTER → 2024-12-10 | Outpatient (CLI) | payer OTHER, SELFPAY ==
[2024-12-17 14:09] LABS: HPV APTIMA, High Risk Negative (Negative)
== END | disposition home or self-care (01) ==
LOC: LABSPEC 12:45
PROVIDERS: PCP Student in an Organized Health Care Education/Training Program; Referring Provider Obstetrics & Gynecology; Visit Provider Obstetrics & Gynecology
DX: Z12.4 Encounter for screening for malignant neoplasm of cervix (principal)
CPT/HCPCS: 87624; 88175; G0145